=== PATIENT | male | born 1940 | race Caucasian/White ===

== ENCOUNTER 2022-07-28 20:53 | Inpatient (IN) | payer MEDICARE, OTHER ==
[2022-07-28] MEDS ORDERED: IPRATROPIUM-ALBUTEROL 3 ML NEB INHALATION STA (22:39)
[2022-07-28] MEDS ORDERED: SODIUM CHLORIDE 0.9% 1,000 ML IV STA (22:39)
--- NOTE | 2022-07-28 22:40 | ED ---
SOB HPI - General Chief Complaint: Shortness of Breath Stated Complaint: JAVIER Time Seen by Provider: 07/28/22 22:39 Source: patient, RN notes reviewed, old records reviewed Mode of arrival: ambulatory Limitations: no limitations - History of Present Illness Initial Comments: this is an 82-year-old male DF for evaluation severe shortness of breath with co ugh. Recent fever positive for influenza. Patient has no chest pain.he does have history of atrial fibrillation and PE MD Complaint: shortness of breath, cough, chest pain (diagnosis of influenza A) -: days(s) Severity: moderate Severity scale (1-10): 7 Quality: sharp Consistency: constant Improves With: oxygen Worsens With: exertion Known History Of: congestive heart failure Context: recent URI, recent illness (insulin today diagnosis) Associated Symptoms: cough - Related Data Home Medications Medication Instructions Recorded Confirmed Aspirin 325 mg PO DAILY 03/18/16 03/22/16 Allergies Allergy/AdvReac Type Severity Reaction Status Date / Time minocycline Allergy Swelling/fa Verified 03/18/16 13:46 ce/throat Review of Systems ROS Statement: Those systems with pertinent positive or pertinent negative responses have been documented in the HPI. ROS Other: All systems not noted in ROS Statement are negative. Past Medical History Past Medical History: Atrial Fibrillation, Cancer, Pulmonary Embolus (PE), Renal Disease, Sleep Apnea/CPAP/BIPAP Additional Past Medical History / Comment(s): HX OF POLYP, HX OF BLADDER CA. 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%, HX OF TINNITUS History of Any Multi-Drug Resistant Organisms: None Reported Past Surgical History: Cholecystectomy, Orthopedic Surgery Additional Past Surgical History / Comment(s): UROSTOMY, RT KNEE 2 ARTHROSCOPIES, 1 OPEN SX, LT KNEE ARTHROSCOPY X1 Past Anesthesia/Blood Transfusion Reactions: No Reported Reaction Past Psychological History: No Psychological Hx Reported Smoking Status: Never smoker Past Alcohol Use History: Rare Past Drug Use History: None Reported - Past Family History Father Family Medical History: Cancer Additional Family Medical History / Comment(s): PANCREATIC General Exam Limitations: no limitations General appearance: alert, in no apparent distress, anxious Head exam: Present: atraumatic, normocephalic, normal inspection Eye exam: Present: normal appearance, PERRL, EOMI. Absent: scleral icterus, conjunctival injection, periorbital swelling ENT exam: Present: normal exam, mucous membranes moist Neck exam: Present: normal inspection. Absent: tenderness, meningismus, lymphadenopathy Respiratory exam: Present: normal lung sounds bilaterally. Absent: respiratory distress, wheezes, rales, rhonchi, stridor Cardiovascular Exam: Present: regular rate, normal rhythm, normal heart sounds. Absent: systolic murmur, diastolic murmur, rubs, gallop, clicks GI/Abdominal exam: Present: soft, normal bowel sounds. Absent: distended, tenderness, guarding, rebound, rigid Extremities exam: Present: normal inspection, full ROM, normal capillary refill. Absent: tenderness, pedal edema, joint swelling, calf tenderness Back exam: Present: normal inspection Neurological exam: Present: alert, oriented X3, CN II-XII intact Psychiatric exam: Present: normal affect, normal mood Skin exam: Present: warm, dry, intact, normal color. Absent: rash Course Vital Signs 07/28/22 07/28/22 07/28/22 22:24 23:17 23:50 Temperature 97.6 F Pulse Rate 74 80 72 Respiratory 28 H 28 H Rate Blood Pressure 133/80 130/98 O2 Sat by Pulse 94 L 92 L Oximetry - Reevaluation(s) Reevaluation #1: 07/28/22 23:04 records reviewed Reevaluation #2: 07/28/22 23:48 patient has no real change in symptoms here in the ER Reevaluation #3: 07/28/22 23:48 patient informed results and questions answered - Consultations Consultation #1: spoke with we'll admit this patient Medical Decision Making - Medical Decision Making 82 male with positive influenza coming in for shortness of breath. Hypoxia with oxygen in the low 80s at home.does have elevated d-dimer we'll put on heparin and admitted for pulmonary perfusion testing for PE - Lab Data Result diagrams: 07/28/22 23:07 07/28/22 23:07 Lab Results 07/28/22 07/28/22 07/28/22 Range/Units 23:07 23:07 23:07 WBC 12.7 H (3.8-10.6) k/uL RBC 5.84 (4.30-5.90) m/uL Hgb 17.8 H (13.0-17.5) gm/dL Hct 53.9 H (39.0-53.0) % MCV 92.1 (80.0-100.0) fL MCH 30.4 (25.0-35.0) pg MCHC 33.0 (31.0-37.0) g/dL RDW 13.6 (11.5-15.5) % Plt Count 123 L (150-450) k/uL MPV 8.7 Neutrophils % 89 % Lymphocytes % 2 % Monocytes % 7 % Eosinophils % 1 % Basophils % 0 % Neutrophils # 11.3 H (1.3-7.7) k/uL Lymphocytes # 0.3 L (1.0-4.8) k/uL Monocytes # 0.9 (0-1.0) k/uL Eosinophils # 0.1 (0-0.7) k/uL Basophils # 0.0 (0-0.2) k/uL PT 10.6 (9.0-12.0) sec INR 1.0 (<1.2) APTT 24.4 (22.0-30.0) sec D-Dimer 1.47 H (<0.60) mg/L FEU Sodium 139 (137-145) mmol/L Potassium 4.7 (3.5-5.1) mmol/L Chloride 109 H (98-107) mmol/L Carbon Dioxide 19 L (22-30) mmol/L Anion Gap 11 mmol/L BUN 58 H (9-20) mg/dL Creatinine 2.36 H (0.66-1.25) mg/dL Est GFR (CKD-EPI)AfAm 29 (>60 ml/min/1.73 sqM) Est GFR (CKD-EPI)NonAf 25 (>60 ml/min/1.73 sqM) Glucose 159 H (74-99) mg/dL Calcium 9.1 (8.4-10.2) mg/dL Magnesium 2.2 (1.6-2.3) mg/dL Total Bilirubin 1.1 (0.2-1.3) mg/dL AST 50 (17-59) U/L ALT 25 (4-49) U/L Alkaline Phosphatase 80 (38-126) U/L Total Protein 7.2 (6.3-8.2) g/dL Albumin 4.2 (3.5-5.0) g/dL - EKG Data -: EKG Interpreted by Me (EKG is a flutter 84 QRS 135 QTc 413) - Radiology Data Radiology results: report reviewed (chest x-rays negative for acute disease), image reviewed Critical Care Time Critical Care Time: Yes Total Critical Care Time: 31 Disposition Clinical Impression: Influenza A, Hypoxia, Weakness Disposition: ADMITTED IP TO THIS HOSP Condition: Fair Is patient prescribed a controlled substance at d/c from ED?: No Referrals: Scooter Martinez MD [Primary Care Provider] - 1-2 days Time of Disposition: 23:55
--- NOTE | 2022-07-28 22:54 | XR ---
EXAMINATION TYPE: XR chest 2V DATE OF EXAM: 07/28/2022 COMPARISON: 02/11/2016 HISTORY: Short of breath FINDINGS: There is no heart failure nor confluent pneumonic infiltrate. Cos tophrenic angles are clear. No pleural effusion. There are no hilar masses. There is intact bony thor ax. There is some mild reticular interstitial density in both lungs. IMPRESSION: Mild increased interstitial density compared to old exam that could be pulmonic fibrosis. No pulmonary consolidation or heart failure.
[2022-07-28 23:26] LABS: Basophils % (A) 0 %; Eosinophils # (A) 0.1 k/uL (0-0.7); Eosinophils % (A) 1 %; HCT 53.9 % (39.0-53.0); HGB 17.8 gm/dL (13.0-17.5); Lymphocytes # (A) 0.3 k/uL (1.0-4.8); Lymphocytes % (A) 2 %; MCH 30.4 pg (25.0-35.0); MCV 92.1 fL (80.0-100.0); Mean Platelet Volume 8.7; Monocytes # (A) 0.9 k/uL (0-1.0); Monocytes % (A) 7 %; Neutrophils # (A) 11.3 k/uL (1.3-7.7); Neutrophils % (A) 89 %; Platelet Count 123 k/uL (150-450); RBC 5.84 m/uL (4.30-5.90); RDW 13.6 % (11.5-15.5); WBC 12.7 k/uL (3.8-10.6)
[2022-07-28 23:41] LABS: Albumin 4.2 g/dL (3.5-5.0); Calcium 9.1 mg/dL (8.4-10.2); Magnesium 2.2 mg/dL (1.6-2.3); Potassium 4.7 mmol/L (3.5-5.1); Total Bilirubin 1.1 mg/dL (0.2-1.3); Total Protein 7.2 g/dL (6.3-8.2)
[2022-07-28 23:48] LABS: Partial Thromboplastin Time 24.4 sec (22.0-30.0); Prothrombin Time 10.6 sec (9.0-12.0)
[2022-07-29] MEDS ORDERED: HEPARIN SODIUM 1,000 UN/ML (10ML VL) IV ONE
[2022-07-29] MEDS ORDERED: MORPHINE SULFATE 4 MG/ML SYRINGE IV PRN
[2022-07-29] MEDS ORDERED: NALOXONE 0.4 MG/ML 1 ML VIAL IV PRN
[2022-07-29] MEDS ORDERED: ONDANSETRON 4 MG/2 ML VIAL IVP PRN
[2022-07-29] MEDS ORDERED: IPRATROPIUM-ALBUTEROL 3 ML NEB INHALATION PRN (00:02)
[2022-07-29] MEDS: SODIUM CHLORIDE 0.9% 1,000 ML IV SCH ×3 (00:54→23:29)
--- NOTE | 2022-07-29 08:18 | NM ---
EXAMINATION TYPE: NM pul perfusion DATE OF EXAM: 07/29/2022 COMPARISON: Radiograph 07/28/2022 HISTORY: 82-year-old male shortness of breath, assess for PE TECHNIQUE: Following administration of 5.1 mCi Tc 99m MAA. Perfusion images obtained post injection. FINDINGS: Multiple scattered small and moderate sized mismatch (relative to the patient's recent chest x-ray) d efects are present throughout the bilateral mid and lower lungs. IMPRESSION: Intermediate probability for pulmonary embolus. If high clinical suspicion, consider initiating treat ment.
[2022-07-29] MEDS ORDERED: ENOXAPARIN 40 MG/0.4 ML SYRINGE SQ SCH (13:00)
[2022-07-29] MEDS ORDERED: CEFDINIR 300 MG CAP PO SCH (13:00)
[2022-07-29] MEDS: ENOXAPARIN 30 MG/0.3 ML SYRINGE SQ SCH (14:14)
[2022-07-29] MEDS: methylPREDNISolone SOD SUCCI 40 MG/ML 1 ML VIAL IV SCH ×2 (14:14→23:28)
[2022-07-29] MEDS: BUDESONIDE 1 MG/2 ML NEBU INHALATION SCH ×2 (15:52→19:46)
--- NOTE | 2022-07-29 15:59 | US ---
EXAMINATION TYPE: US renals and bladder DATE OF EXAM: 07/29/2022 COMPARISON: Correlation CT chest same date CLINICAL HISTORY: 82-year-old male assess for ckd. Assess for CKD. Hx of bladder cancer with bladder removed in 2009. TECHNIQUE: Multiple sonographic images of the kidneys and bladder are obtained. FINDINGS: EXAM MEASUREMENTS: Right Kidney: 13.0 x 5.9 x 6.5 cm Left Kidney: 12.4 x 6.9 x 6.8 cm. Difficult to clearly see kidney tissue. Right Kidney: Prominent in size. Very lobulated contour. Small amount of perinephric edema is noted. There is an extrarenal pelvis. No calyceal dilatation to suggest hydronephrosis. *Appearance of dilated lower collecting system-minimal hydronephrosis?. Left Kidney: Possible severe hydronephrosis with effaced renal parenchyma. Bladder: Surgically absent Bilateral Jets seen: No IMPRESSION: 1. Very lobulated right kidney. This limits assessment for underlying discrete renal lesions. There i s an extrarenal pelvis. No calyceal dilatation to suggest hydronephrosis. 2. Suspect severe hydronephrosis on the left. Probably long-standing as the renal parenchyma appears thinned and effaced. Appropriate further workup as indicated.
--- NOTE | 2022-07-29 16:00 | CT ---
EXAMINATION TYPE: CT chest wo con DATE OF EXAM: 07/29/2022 COMPARISON: None HISTORY: flu A, SOB CT DLP: 1054.3 mGycm. Automated Exposure Control for Dose Reduction was Utilized. TECHNIQUE: CT scan of the thorax is performed without IV contrast. High-resolution protocol was util ized with noncontiguous scanning of the lung parenchyma. Scanning was performed in supine and prone p ositions. FINDINGS: There are focal ill-defined parenchymal densities in the lower lobes bilaterally, right greater than left. Right densities approximately 2.5 cm and left density is approximately 2 cm. This is a nonspeci fic finding and could represent dense pleural parenchymal scarring or atelectasis. Acute pneumonia is not excluded. There is moderate bronchiectasis in both lower lobes and there are a few small scattered areas of fin e interstitial densities in the upper lobes bilaterally. The great vessels the chest are normal is no mediastinal, hilar or axillary adenopathy. There is no p leural effusion or pneumothorax. Limited scanning through the upper abdomen reveals no gross adenopathy. IMPRESSION: 1. Focal nonspecific pleural parenchymal densities in the lung bases bilaterally as described above. 2. Mild to moderate chronic changes with moderate bilateral lower lobe bronchiectasis and a few scatt ered upper lobe interstitial densities. 3.. No pleural effusion. 4. No mediastinal, hilar or axillary adenopathy
--- NOTE | 2022-07-29 16:14 | P.HPIM ---
History of Present Illness H&P Date: 07/29/22 Chief Complaint: Short of breath This is a pleasant 82-year-old patient who follows with Dr. Scooter Martinez. Chronic stable medical conditions include atrial fibrillation, PE, COPD, obstructive sleep apnea, history of bladder cancer resulting in urostomy in 2001, decreased left kidney function at 50%, chronic tinnitus. Patient presents with progressive increase in shortness of breath for at least 3-4 weeks. Also wheezing. Occasionally coughing. Some dampening of sputum. Decreased appetite. No fever no chills. It's really short-winded on walking about 10-15 steps. No edema. No chest pain. Patient recently few days ago positive for influenza A. Review of systems: GEN.: Tired, decreased appetite EYES: None HEENT: Tinnitus] NECK: None RESPIRATORY: As above CARDIOVASCULAR: None GASTROINTESTINAL: None GENITOURINARY: None MUSCULOSKELETAL: Some joint pains LYMPHATICS: None HEMATOLOGICAL: None PSYCHIATRY: None NEUROLOGICAL: None Past medical history to include: Atrial fibrillation, pulmonary embolism, sleep apnea, bladder cancer with surgery with the urostomy in 2001, if kidney function 10-15%, tinnitus Social history: Lives alone. . Smoked about negative for close to 40 years stopped in 22 years ago. Alcohol rarely. Physical examination: VITAL SIGNS: 97.5, 82, 20, 1 73 x 88, 96% on 3 L GENERAL: BMI 30.3, sitting at edge of the bed, short of breath. EYES: Pupils equal. Conjunctiva normal. HEENT: External appearance of nose and ears normal, oral cavity grossly normal. NECK: JVD not raised; masses not palpable. HEART: First and second heart sounds are normal; no edema. LUNGS:[ Respiratory rate increased; diminished breath sounds, prolonged expiration. ABDOMEN: Soft, nontender, liver spleen not palpable, no masses palpable. PSYCH: [Alert and oriented x3; mood and affect tired l. MUSCULOSKELETAL:No Clubbing/cyanosis;muscles-grossly intact, OA NEUROLOGICAL: Cranial nerves grossly intact; no facial asymmetry, power and sensation grossly intact. LYMPHATICS: No lymph nodes palpable in the axilla and neck, INVESTIGATIONS, reviewed in the clinical context: Reviewed ultrasound: Right kidney very lobulated contour. Left kidney: Possible severe hydronephrosis with effaced renal parenchyma. WBC 12.7 hemoglobin 17.8 platelets 123 sodium 139 potassium 4.7 bicarb 19 BUN 58 creatinine 2.36 Troponin I 0.048 proBNP 700 EKG tracing personally reviewed by me-atrial flutter, rate 84, right bundle- branch block pattern VQ scan: Intermediate probability for PE. Assessment and plan: -Acute COPD exacerbation in a previous smoker Patient is being progressively short of breath for about 3-4 weeks at least. Short of breath. Wheezing. Occasional cough with sputum production. Possible acute bronchitis. Patient recently tested positive for influenza A. It has been a few days. DuoNeb every 4. Nebulize Pulmicort. IV Solu-Medrol. Omnicef -Intermediate probability VQ scan Doppler ultrasound both thighs. Consult pulmonary. -Abnormal renal function. Acute versus chronic. Renal ultrasound. UA. IV hydration. Repeat labs. -Metabolic acidosis from renal function Sodium bicarbonate -Possible atrial flutter fibrillation. Consult cardiology. 2-D echo. DuoNeb. Last Pulmicort. IV Solu-Medrol. Ultrasound lower extremity. 2-D echo. Consult pulmonary cardiology. Renal ultrasound. Past Medical History Past Medical History: Atrial Fibrillation, Cancer, Pulmonary Embolus (PE), Renal Disease, Sleep Apnea/CPAP/BIPAP Additional Past Medical History / Comment(s): HX OF POLYP, HX OF BLADDER CA. 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%, HX OF TINNITUS History of Any Multi-Drug Resistant Organisms: None Reported Past Surgical History: Cholecystectomy, Orthopedic Surgery Additional Past Surgical History / Comment(s): UROSTOMY, RT KNEE 2 ARTHROSCOPIES, 1 OPEN SX, LT KNEE ARTHROSCOPY X1 Past Anesthesia/Blood Transfusion Reactions: No Reported Reaction Past Psychological History: No Psychological Hx Reported Smoking Status: Never smoker Past Alcohol Use History: Rare Past Drug Use History: None Reported - Past Family History Father Family Medical History: Cancer Additional Family Medical History / Comment(s): PANCREATIC Medications and Allergies Home Medications Medication Instructions Recorded Confirmed Type Benzonatate [Tessalon Perle] 200 mg PO TID PRN 07/29/22 07/29/22 History Sennosides [Senokot] 8.6 mg PO DAILY PRN 07/29/22 07/29/22 History methylPREDNISolone [Medrol Dose See Taper PO DIRECTED 07/29/22 07/29/22 History Pack] Allergies Allergy/AdvReac Type Severity Reaction Status Date / Time minocycline Allergy Swelling/fa Verified 07/29/22 08:45 ce/throat Physical Exam Vitals: Vital Signs Temp Pulse Pulse Resp BP BP Pulse Ox 07/29/22 10:51 76 18 138/81 94 L 07/29/22 08:00 78 07/29/22 07:49 73 96 07/29/22 07:35 97.5 F L 82 20 173/88 96 07/29/22 06:44 60 20 167/79 94 L 07/29/22 06:02 56 L 20 141/66 94 L 07/29/22 04:00 78 20 94 L 07/29/22 03:36 72 20 160/87 94 L 07/29/22 02:05 76 20 116/93 95 07/29/22 00:56 92 22 176/91 95 07/29/22 00:33 74 24 176/91 95 07/29/22 00:05 28 H 07/29/22 00:02 79 07/28/22 23:50 72 07/28/22 23:17 80 28 H 130/98 92 L 07/28/22 22:24 97.6 F 74 28 H 133/80 94 L Intake and Output 07/28/22 07/29/22 07/29/22 22:59 06:59 14:59 Other: Weight 95.708 kg Results CBC & Chem 7: 07/28/22 23:07 07/28/22 23:07 Labs: Abnormal Lab Results - Last 24 Hours (Table) 07/28/22 07/28/22 07/28/22 Range/Units 23:07 23:07 23:07 WBC 12.7 H (3.8-10.6) k/uL Hgb 17.8 H (13.0-17.5) gm/dL Hct 53.9 H (39.0-53.0) % Plt Count 123 L (150-450) k/uL Neutrophils # 11.3 H (1.3-7.7) k/uL Lymphocytes # 0.3 L (1.0-4.8) k/uL D-Dimer 1.47 H (<0.60) mg/L FEU Chloride 109 H (98-107) mmol/L Carbon Dioxide 19 L (22-30) mmol/L BUN 58 H (9-20) mg/dL Creatinine 2.36 H (0.66-1.25) mg/dL Glucose 159 H (74-99) mg/dL Troponin I (0.000-0.034) ng/mL 07/28/22 Range/Units 23:07 WBC (3.8-10.6) k/uL Hgb (13.0-17.5) gm/dL Hct (39.0-53.0) % Plt Count (150-450) k/uL Neutrophils # (1.3-7.7) k/uL Lymphocytes # (1.0-4.8) k/uL D-Dimer (<0.60) mg/L FEU Chloride (98-107) mmol/L Carbon Dioxide (22-30) mmol/L BUN (9-20) mg/dL Creatinine (0.66-1.25) mg/dL Glucose (74-99) mg/dL Troponin I 0.048 H* (0.000-0.034) ng/mL
--- NOTE | 2022-07-29 16:52 | US ---
EXAMINATION TYPE: US venous doppler duplex LE DATE OF EXAM: 07/29/2022 4:47 PM COMPARISON: NONE CLINICAL HISTORY: Rule out DVT. Leg swelling, pt states h/o DVT approx 10 yrs ago SIDE PERFORMED: Bilateral TECHNIQUE: The lower extremity deep venous system is examined utilizing real time linear array sonog deanna with graded compression, doppler sonography and color-flow sonography. VESSELS IMAGED: Common Femoral Vein Deep Femoral Vein Greater Saphenous Vein * Femoral Vein Popliteal Vein Small Saphenous Vein * Proximal Calf Veins (* superficial vessels) Right Leg: Negative for DVT Left Leg: Negative for DVT IMPRESSION: No evidence of deep vein thrombosis in both legs.
[2022-07-29] MEDS: SODIUM BICARBONATE TAB 650 MG TAB PO SCH ×2 (17:09→20:47)
[2022-07-29] MEDS: IPRATROPIUM-ALBUTEROL 3 ML NEB INHALATION SCH ×3 (17:11→23:38)
[2022-07-29] MEDS ORDERED: DEXTROSE 50% SYRINGE 50 ML IVP PRN ×2 (17:24)
[2022-07-29] MEDS: INSULIN ASPART (NovoLOG) 100 UNIT/ML VIAL SQ SCH ×2 (18:00→20:47)
[2022-07-29 18:57] LABS: Appearance,Urine Cloudy (Clear); Bacteria,Urine Few /hpf; Bilirubin,Urine Negative (Negative); Blood,Urine Moderate (Negative); Budding Yeast,Urine Occasional /hpf; Color,Urine Light Yellow; Glucose,Urine (UA) Negative (Negative); Ketones,Urine Negative (Negative); Leukocyte Esterase,Urine Large (Negative); Mucus,Urine Rare /hpf; Nitrite,Urine Positive (Negative); Protein,Urine 2+ (Negative); RBC,Urine 3 /hpf (0-5); Specific Gravity,Urine 1.013 (1.001-1.035); Squamous Epithelial Cell,Urine <1 /hpf (0-4); Urobilinogen,Urine <2.0 mg/dL (<2.0); WBC,Urine 71 /hpf (0-5)
[2022-07-29 20:02] LABS: Glucose,Whole Blood 181 mg/dL (70-110)
[2022-07-30] MEDS: IPRATROPIUM-ALBUTEROL 3 ML NEB INHALATION SCH ×5 (03:20→20:36)
[2022-07-30 06:11] LABS: Glucose,Whole Blood 148 mg/dL (70-110)
[2022-07-30] MEDS: INSULIN ASPART (NovoLOG) 100 UNIT/ML VIAL SQ SCH ×4 (06:44→20:45)
--- NOTE | 2022-07-30 07:34 | XR ---
EXAMINATION TYPE: XR chest 1V DATE OF EXAM: 07/30/2022 7:02 AM COMPARISON: Chest radiographs from 07/28/2022 TECHNIQUE: XR chest 1V Frontal view of the chest. CLINICAL INDICATION:Male, 82 years old with history of cough; FINDINGS: Lungs/Pleura: Similar multifocal airspace opacities. No evidence of pneumothorax or pleural effusion. Pulmonary vascularity: Unremarkable. Heart/mediastinum: Cardiomediastinal silhouette is prominent in size. Musculoskeletal: No acute osseous pathology. IMPRESSION: Multifocal airspace opacities concerning for pneumonia.
[2022-07-30] MEDS: BUDESONIDE 1 MG/2 ML NEBU INHALATION SCH ×2 (08:19→20:36)
[2022-07-30] MEDS: CEFDINIR 300 MG CAP PO SCH (08:43)
[2022-07-30] MEDS: ENOXAPARIN 30 MG/0.3 ML SYRINGE SQ SCH (08:43)
[2022-07-30] MEDS: methylPREDNISolone SOD SUCCI 40 MG/ML 1 ML VIAL IV SCH ×3 (08:43→23:41)
[2022-07-30] MEDS: SODIUM BICARBONATE TAB 650 MG TAB PO SCH ×3 (08:43→20:41)
--- NOTE | 2022-07-30 09:11 | P.NPCON ---
History of Present Illness - Reason for Consult acute renal failure - History of Present Illness Patient is an 82-year-old male with history of bladder cancer status post cystectomy and prostatectomy with urostomy in 2001. 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 Baseline renal function not known Patient is admitted to the hospital with increased weakness and shortness of breath. He did have cough. No significant diarrhea or vomiting. Tested positive for influenza A a few days ago as outpatient. Serum creatinine 2.36 mg/dL on 07/28/2022. No other labs available for comparison. Patient has had good output from the urostomy. Patient states that he was told he has minimal function in the left kidney. Blood pressure has not been low No history of use of NSAIDs. Currently maintained on nasal cannula 3 L with O2 sats at 95%. Review of Systems As per HPI other systems negative Past Medical History Past Medical History: Atrial Fibrillation, Cancer, Pulmonary Embolus (PE), Renal Disease, Sleep Apnea/CPAP/BIPAP Additional Past Medical History / Comment(s): HX OF POLYP, HX OF BLADDER CA. 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%, HX OF TINNITUS History of Any Multi-Drug Resistant Organisms: None Reported Past Surgical History: Cholecystectomy, Orthopedic Surgery Additional Past Surgical History / Comment(s): UROSTOMY, RT KNEE 2 ARTHROSCOPIES, 1 OPEN SX, LT KNEE ARTHROSCOPY X1 Past Anesthesia/Blood Transfusion Reactions: No Reported Reaction Smoking Status: Former smoker - Past Family History Father Family Medical History: Cancer Additional Family Medical History / Comment(s): PANCREATIC Medications and Allergies Home Medications Medication Instructions Recorded Confirmed Type Benzonatate [Tessalon Perle] 200 mg PO TID PRN 07/29/22 07/29/22 History Sennosides [Senokot] 8.6 mg PO DAILY PRN 07/29/22 07/29/22 History methylPREDNISolone [Medrol Dose See Taper PO DIRECTED 07/29/22 07/29/22 History Pack] Allergies Allergy/AdvReac Type Severity Reaction Status Date / Time minocycline Allergy Swelling/fa Verified 07/29/22 08:45 ce/throat Physical Exam Vitals: Vital Signs Temp Pulse Pulse Resp BP Pulse Ox 07/30/22 08:30 70 07/30/22 08:21 95 07/30/22 08:19 68 07/30/22 08:00 77 16 135/61 95 07/30/22 04:00 98.1 F 73 18 112/53 97 07/30/22 03:32 72 07/30/22 03:20 76 07/29/22 23:49 64 07/29/22 23:39 60 07/29/22 20:04 80 07/29/22 20:00 97.9 F 118 H 20 142/83 94 L 07/29/22 19:50 77 07/29/22 17:20 75 07/29/22 17:11 70 07/29/22 16:33 97.2 F L 76 18 181/88 94 L 07/29/22 10:51 76 18 138/81 94 L Intake and Output 07/29/22 07/30/22 07/30/22 22:59 06:59 14:59 Intake Total 658 Output Total 500 600 175 Balance -500 -600 483 Intake: Oral 658 Output: Urine 500 600 175 Awake, comfortable, no acute distress Examination of the heart S1 and S2 Examination of the lungs bilateral breath sounds are heard Abdomen is soft nontender, urostomy noted with clear urine output Examination of the lower extremity shows no evidence of 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 Acute kidney injury, prerenal and associated with underlying infection. Currently nonoliguric. UA shows 2+ protein and moderate blood and significant WBCs. This is a urostomy specimen. No nephrotoxic agents on board. Maintained on IV fluids 2. Chronic kidney disease, baseline renal function not known. Patient states that she was told that one of his kidneys had only about 10-15% function. Check ultrasound to assess size of the kidneys 3. Recent influenza A 4. Pneumonia possibly viral 5. Acute COPD exacerbation Plan: Check labs today Resume IV fluids his renal function is not better Check ultrasound of the kidneys Continue to avoid nephrotoxic agents Repeat labs in a.m. Thank you for the consultation. We will continue to follow the patient with you during his hospitalization
[2022-07-30 11:55] LABS: Glucose,Whole Blood 120 mg/dL (70-110)
--- NOTE | 2022-07-30 11:56 | US ---
EXAMINATION TYPE: US kidneys/renal and bladder DATE OF EXAM: 07/30/2022 COMPARISON: 07/29/2022 CLINICAL HISTORY: JUANITO. Bladder and prostate cancer 2009 EXAM MEASUREMENTS: Right Kidney: 12.1 x 5.7 x 5.2 cm Left Kidney: 17.5 x 8.2 x 7.0 cm Right Kidney: Lobulated without hydronephrosis visualized Slight possible edema noted peripherally, similar to prior exam. Left Kidney: Moderate dilation of the collecting system on the left with thinning parenchyma. Bladder: Removed IMPRESSION: 1. Moderate dilation of the left renal collecting system which should be further evaluated with cros s-sectional imaging. 2. No evidence of right hydronephrosis.
--- NOTE | 2022-07-30 12:46 | P.CNPUL ---
History of Present Illness Consult date: 07/30/22 Reason for consult: dyspnea Chief complaint: 2 weeks history of worsening shortness of breath on exertion History of present illness: This is an 82-year-old white male with history of multiple comorbidities including chronic atrial fibrillation, COPD, history of bladder cancer and previous ureterostomy in 2001 done at the [facility]. History of chronic renal failure/insufficiency and remote history of pulmonary embolism. For some reason the patient is not on any anticoagulation therapy in spite of his atrial fibrillation, patient recalls being on anticoagulation therapy years ago but none recently. Patient had a previous [id number] smoking history, presently does not smoke. Over the last 2 weeks, the patient has been developing worsening shortness of breath on exertion, occasional cough, minimal wheezing if any. Patient could not figure out why his shortness of breath has become pronounced over the last 2 weeks, he was recently diagnosed by a primary care physician as having influenza A infection. His symptoms at the time of mostly upper respiratory type of symptoms which have resolved mostly. Except for minimal occasional cough. Patient was evaluated in the ER, chest x-ray showed minimal interstitial densities, questionable underlying minimal fibrotic changes. No pneumonia and no congestive heart failure. CT of the chest showed focal nonspecific parenchymal densities, and possibly some component of by basilar bronchiectasis. Again the findings are nonspecific. His WBC count is 12.7 hemoglobin is 17.8. D-dimer was elevated at 1.47. However because of his renal profile with a BUN of 58 creatinine 2.36, patient could not have CT angiogram of the chest, he had a perfusion scan, which showed multiple mismatching defects, and by the radiologist as intermediate probability, I feel it is likely a high probability VQ scan, and based on the clinical history and considering the patient has atrial fibrillation, I am definitely recommending that the patient goes on heparin as per protocol. Troponin was also noted to be elevated at 0.048, his BNP level was normal. Urinalysis showed positive leukocyte esterase, and a bit of bacteriuria, and pyuria. Considering his shortness of breath, and considering his findings on the perfusion scan, I was asked to see him on consultation. I did recommend that we continue his bronchodilators, methylprednisolone, DuoNeb updrafts, Pulmicort, and definitely recommending heparin. Although his venous Doppler was negative Review of Systems GEN.: Weakness and poor appetite. No weight loss. HEENT: Chronic Tinnitus] RESPIRATORY: As noted in HPI. Cardiac: No chest pain and orthopnea no PND does have chronic atrial fibrillation. GASTROINTESTINAL: Negative GENITOURINARY: Patient has history of bladder cancer, his bladder has been removed, he has a ureterostomy bag placed MUSCULOSKELETAL: Vague aches and pains. HEMATOLOGICAL: History of pulmonary embolism. Patient used to be on heparin before and anticoagulation therapy in the past. PSYCHIATRY: Negative NEUROLOGICAL: Negative Past Medical History Past Medical History: Atrial Fibrillation, Cancer, Pulmonary Embolus (PE), Renal Disease, Sleep Apnea/CPAP/BIPAP Additional Past Medical History / Comment(s): HX OF POLYP, HX OF BLADDER CA. 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%, HX OF TINNITUS History of Any Multi-Drug Resistant Organisms: None Reported Past Surgical History: Cholecystectomy, Orthopedic Surgery Additional Past Surgical History / Comment(s): UROSTOMY, RT KNEE 2 ARTHROS COPIES, 1 OPEN SX, LT KNEE ARTHROSCOPY X1 Past Anesthesia/Blood Transfusion Reactions: No Reported Reaction Smoking Status: Former smoker - Past Family History Father Family Medical History: Cancer Additional Family Medical History / Comment(s): PANCREATIC Medications and Allergies Home Medications Medication Instructions Recorded Confirmed Type Benzonatate [Tessalon Perle] 200 mg PO TID PRN 07/29/22 07/29/22 History Sennosides [Senokot] 8.6 mg PO DAILY PRN 07/29/22 07/29/22 History methylPREDNISolone [Medrol Dose See Taper PO DIRECTED 07/29/22 07/29/22 History Pack] Allergies Allergy/AdvReac Type Severity Reaction Status Date / Time minocycline Allergy Swelling/fa Verified 07/29/22 08:45 ce/throat Physical Exam Vitals: Vital Signs Temp Pulse Pulse Resp BP Pulse Ox 07/30/22 11:46 98.5 F 73 16 93 L 07/30/22 11:38 67 07/30/22 11:29 71 07/30/22 08:30 70 07/30/22 08:21 95 07/30/22 08:19 68 07/30/22 08:00 77 16 135/61 95 07/30/22 04:00 98.1 F 73 18 112/53 97 07/30/22 03:32 72 07/30/22 03:20 76 07/29/22 23:49 64 07/29/22 23:39 60 07/29/22 20:04 80 07/29/22 20:00 97.9 F 118 H 20 142/83 94 L 07/29/22 19:50 77 07/29/22 17:20 75 07/29/22 17:11 70 07/29/22 16:33 97.2 F L 76 18 181/88 94 L Intake and Output 07/29/22 07/30/22 07/30/22 22:59 06:59 14:59 Intake Total 658 Output Total 500 600 175 Balance -500 -600 483 Intake: Oral 658 Output: Urine 500 600 175 Physical Exam: Revealed a 82-year-old white male in no distress, pleasant. On 3 L nasal cannula, O2 sats are 96% Head: Atraumatic, normocephalic. HEENT:[Neck is supple.] [No neck masses.] [No thyromegaly.] [No JVD.] Chest: Diminished breath sound bilaterally no crackles or rhonchi or wheezes. Symmetrical chest expansion. Cardiac Exam: Irregular irregular rhythm. [Normal S1 and S2, no S3 gallop, no murmur.] Abdomen: [Soft, nontender, no megaly, no rebound, no guarding, normal bowel sounds.] Urostomy bag is noted Extremities: [No clubbing, no edema, no cyanosis.] Good pulses bilaterally. Psychiatric: Normal mood, affect and normal mental status examination. Skin: No rashes. Neurological Exam: [No focal neurologic deficit.] Results - Laboratory Findings CBC and BMP: 07/28/22 23:07 07/28/22 23:07 PT/INR, D-dimer PT 10.6 sec (9.0-12.0) 07/28/22 23:07 INR 1.0 (<1.2) 07/28/22 23:07 D-Dimer 1.47 mg/L FEU (<0.60) H 07/28/22 23:07 Abnormal lab findings: Abnormal Labs 07/28/22 07/28/22 07/28/22 23:07 23:07 23:07 WBC 12.7 H Hgb 17.8 H Hct 53.9 H Plt Count 123 L Neutrophils # 11.3 H Lymphocytes # 0.3 L D-Dimer 1.47 H Chloride 109 H Carbon Dioxide 19 L BUN 58 H Creatinine 2.36 H Glucose 159 H POC Glucose (mg/dL) Troponin I Urine Protein Urine Blood Ur Leukocyte Esterase Urine WBC Urine Bacteria Urine Mucus Urine Yeast (Budding) 07/28/22 07/29/22 07/29/22 23:07 18:52 20:01 WBC Hgb Hct Plt Count Neutrophils # Lymphocytes # D-Dimer Chloride Carbon Dioxide BUN Creatinine Glucose POC Glucose (mg/dL) 181 H Troponin I 0.048 H* Urine Protein 2+ H Urine Blood Moderate H Ur Leukocyte Esterase Large H Urine WBC 71 H Urine Bacteria Few H Urine Mucus Rare H Urine Yeast (Budding) Occasional H 07/30/22 07/30/22 06:09 11:54 WBC Hgb Hct Plt Count Neutrophils # Lymphocytes # D-Dimer Chloride Carbon Dioxide BUN Creatinine Glucose POC Glucose (mg/dL) 148 H 120 H Troponin I Urine Protein Urine Blood Ur Leukocyte Esterase Urine WBC Urine Bacteria Urine Mucus Urine Yeast (Budding) - Diagnostic Findings Chest x-ray: image reviewed (As noted in HPI) CT scan - chest: image reviewed (As noted in HPI) Additional studies: VQ scan showed multiple mismatching defects., I suspect the findings are consistent with high probability pulmonary embolism, especially with the clinical history. Assessment and Plan Assessment: Impression: Acute dyspnea/2 weeks history of shortness of breath, most likely secondary to acute pulmonary embolism and suspect some underlying COPD as well as chronic atrial fibrillation/flutter. Recent influenza A infection. Chronic renal failure Chronic metabolic acidosis most likely secondary to renal impairment/chronic renal failure History of bladder cancer and previous cystectomy Remote history of pulmonary embolism History of obstructive sleep apnea syndrome. Recommendation: Start patient on heparin and follow the protocol, transition to eliquis in the next 24 hours. Continue bronchodilators as ordered by the admitting physician Transition to oral prednisone in the next 24 hours Echocardiogram is pending Agree with sodium bicarb Continue to monitor renal status We will continue to follow Time with Patient: Greater than 30
[2022-07-30 13:16] LABS: Calcium 8.4 mg/dL (8.4-10.2); Potassium 4.4 mmol/L (3.5-5.1)
[2022-07-30] MEDS: HEPARIN SOD,PORK IN 0.45% NACL 25,000 UNIT in 0.45% NACL 1 250ML.BAG IV SCH (13:24)
--- NOTE | 2022-07-30 13:33 | P.CRDCN ---
History of Present Illness Consult date: 07/30/22 History of present illness: Patient has a known history of atrial fibrillation, pulmonary embolism, COPD, shocked of sleep apnea, history of bladder cancer resulting in a urostomy in 2001 decreased left kidney function at 50%, and chronic tinnitus. We have been consulted to patient for atrial flutter She presented to the ER with complaints of shortness of breath increased cough and fever. Patient is positive for influenza. His EKG showed atrial flutter with controlled ventricular. Patient's troponin was also slightly elevated at 0.048 this is believed to be secondary to the chronic renal failure. His BNP was 700. His chest x-ray showed mildly increased interstitial density but no evidence of heart failure. Patient is on a heparin drip for anticoagulation, will check coverage for Eliquis. Lacho transition him to Eliquis tomorrow. l Review of Systems REVIEW OF SYSTEMS At the time of my exam: CONSTITUTIONAL: Denies fever or chills. EYES: Negative for vision changes ENT: Negative for hearing loss CARDIOVASCULAR: Denies chest pain, shortness of breath, diaphoresis, orthopnea, PND or palpitations. VASCULAR: Denies edema RESPIRATORY: Denies cough. GASTROINTESTINAL: Denies abdominal pain, diarrhea, constipation, nausea or vomiting. MUSCULOSKELETAL: Denies myalgias. NEUROLOGIC: Denies numbness, tingling, headache or weakness. ENDOCRINE: Denies fatigue, weight change, polydipsia or polyurina. GENITOURINARY: Denies burning, hematuria or urgency with micturation. HEMATOLOGIC: Denies history of anemia or bleeding. DERMATOLOGY: Denies rash or skin sores PSYCH: Negative for depression or hallucinations. Past Medical History Past Medical History: Atrial Fibrillation, Cancer, Pulmonary Embolus (PE), Renal Disease, Sleep Apnea/CPAP/BIPAP Additional Past Medical History / Comment(s): HX OF POLYP, HX OF BLADDER CA. 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%, HX OF TINNITUS History of Any Multi-Drug Resistant Organisms: None Reported Past Surgical History: Cholecystectomy, Orthopedic Surgery Additional Past Surgical History / Comment(s): UROSTOMY, RT KNEE 2 ARTHROS COPIES, 1 OPEN SX, LT KNEE ARTHROSCOPY X1 Past Anesthesia/Blood Transfusion Reactions: No Reported Reaction Smoking Status: Former smoker - Past Family History Father Family Medical History: Cancer Additional Family Medical History / Comment(s): PANCREATIC Medications and Allergies Home Medications Medication Instructions Recorded Confirmed Type Benzonatate [Tessalon Perle] 200 mg PO TID PRN 07/29/22 07/29/22 History Sennosides [Senokot] 8.6 mg PO DAILY PRN 07/29/22 07/29/22 History methylPREDNISolone [Medrol Dose See Taper PO DIRECTED 07/29/22 07/29/22 History Pack] Apixaban [Eliquis] 5 mg PO BID #60 tab 07/30/22 Rx Allergies Allergy/AdvReac Type Severity Reaction Status Date / Time minocycline Allergy Swelling/fa Verified 07/29/22 08:45 ce/throat Physical Exam Vitals: Vital Signs Temp Pulse Pulse Resp BP Pulse Ox 07/30/22 11:46 98.5 F 73 16 93 L 07/30/22 11:38 67 07/30/22 11:29 71 07/30/22 08:30 70 07/30/22 08:21 95 07/30/22 08:19 68 07/30/22 08:00 77 16 135/61 95 07/30/22 04:00 98.1 F 73 18 112/53 97 07/30/22 03:32 72 07/30/22 03:20 76 07/29/22 23:49 64 07/29/22 23:39 60 07/29/22 20:04 80 07/29/22 20:00 97.9 F 118 H 20 142/83 94 L 07/29/22 19:50 77 07/29/22 17:20 75 07/29/22 17:11 70 07/29/22 16:33 97.2 F L 76 18 181/88 94 L Intake and Output 07/29/22 07/30/22 07/30/22 22:59 06:59 14:59 Intake Total 658 Output Total 500 600 375 Balance -500 -600 283 Intake: Oral 658 Output: Urine 500 600 375 General: The patient is awake and alert, in no distress, and does not appear acutely ill. Skin: Skin is warm and dry and no rashes or lesions are noted. Eye: Pupils are equal, round and reactive to light, extra-ocular movements are intact; there is normal conjunctiva bilaterally. Ears, nose, mouth and throat: There are moist mucous membranes and no oral les ions. Neck: The neck is supple, there is no tenderness or JVD. Cardiovascular: There is irregular regular rate and rhythm. No murmur, rub or gallop is appreciated. Respiratory: Lungs are clear to auscultation, respirations are non-labored, breath sounds are equal. Gastrointestinal: Soft, non-distended, non-tender abdomen without masses or organomegaly noted. There is no rebound or guarding present. Bowel sounds are unremarkable. Back: There is no tenderness to palpation in the midline. There is no obvious deformity. Musculoskeletal: Normal ROM, no tenderness, There is no pedal edema. There is no calf tenderness or swelling. Extremities: Mild bilateral pitting edema Vascular: Femoral pulse is normal. Posterior tibial pulses are normal .Dorsalis pedis is palpable. Neurological: CN II-XII intact. There are no obvious motor or sensory deficits. Speech is normal. Psychiatric: Cooperative, appropriate mood & affect, normal judgment Results 07/28/22 23:07 07/30/22 12:17 Comprehensive Metabolic Panel 07/30/22 Range/Units 12:17 Sodium 142 (137-145) mmol/L Potassium 4.4 (3.5-5.1) mmol/L Chloride 109 H (98-107) mmol/L Carbon Dioxide 23 (22-30) mmol/L BUN 52 H (9-20) mg/dL Creatinine 2.07 H (0.66-1.25) mg/dL Glucose 106 H (74-99) mg/dL Calcium 8.4 (8.4-10.2) mg/dL Current Medications Generic Name Dose Route Start Last Admin Trade Name Freq PRN Reason Stop Dose Admin Albuterol/Ipratropium 3 ml 07/29/22 00:02 07/29/22 07:48 Ipratropium-Albuterol 3 Ml Neb INHALATION 3 ml RT-QID PRN Administration Shortness Of Breath Or Wheezing Albuterol/Ipratropium 3 ml 07/30/22 12:00 07/30/22 11:29 Ipratropium-Albuterol 3 Ml Neb INHALATION 3 ml RT-QID ELIECER Administration Budesonide 1 mg 07/29/22 13:00 07/30/22 08:19 Budesonide 1 Mg/2 Ml Nebu INHALATION 1 mg RT-BID ELIECER Administration Cefdinir 300 mg 07/30/22 09:00 07/30/22 08:43 Cefdinir 300 Mg Cap PO 300 mg DAILY ELIECER Administration Protocol Dextrose/Water 25 ml 07/29/22 17:24 Dextrose 50% Syringe 50 Ml IVP PER PROTOCOL PRN Hypoglycemia Protocol Dextrose/Water 50 ml 07/29/22 17:24 Dextrose 50% Syringe 50 Ml IVP PER PROTOCOL PRN Hypoglycemia Protocol Sodium Chloride 1,000 mls @ 100 mls/hr 07/29/22 00:00 07/29/22 23:29 Saline 0.9% IV Not Given .Q10H ELIECER Heparin Sodium/Sodium Chloride 250 mls @ 10 mls/hr 07/30/22 10:15 07/30/22 13:24 25,000 unit/ Sodium Chloride IV 10.448 units/kg/hr .Q24H ELIECER 10 mls/hr Administration Protocol 10.448 UNITS/KG/HR Insulin Aspart 0 unit 07/29/22 17:30 07/30/22 12:46 Insulin Aspart (Novolog) 100 Unit/Ml Vial SQ Not Given ACHS [facility] Protocol Methylprednisolone Sodium Succinate 40 mg 07/29/22 13:00 07/30/22 08:43 Methylprednisolone Sod Succi 40 Mg/Ml 1 Ml Vial IV 40 mg Q8HR ELIECER Administration Morphine Sulfate 4 mg 07/29/22 00:00 Morphine Sulfate 4 Mg/Ml Syringe IV Q4HR PRN Severe Pain (Scale 7 to 10) Naloxone HCl 0.2 mg 07/29/22 00:00 Naloxone 0.4 Mg/Ml 1 Ml Vial IV Q2M PRN Opioid Reversal Ondansetron HCl 4 mg 07/29/22 00:00 Ondansetron 4 Mg/2 Ml Vial IVP Q8HR PRN Nausea And Vomiting Sodium Bicarbonate 650 mg 07/29/22 16:15 07/30/22 08:43 Sodium Bicarbonate Tab 650 Mg Tab PO 650 mg TID ELIECER Administration Intake and Output 07/29/22 07/30/22 07/30/22 22:59 06:59 14:59 Intake Total 658 Output Total 500 600 375 Balance -500 -600 283 Intake: Oral 658 Output: Urine 500 600 375 07/28/22 23:07 07/30/22 12:17 Assessment and Plan Assessment: New onset atrial flutter Elevated troponins believed to be secondary to renal failure. Plan: Continue with heparin drip Check coverage for Eliquis Transitioned to oral anticoagulation tomorrow Further recommendations based on clinical course The above impression and plan of care have been discussed and directed by the signing physician. Becky Brooks, nurse practitioner, acting as scribe for signing physician.
--- NOTE | 2022-07-30 14:44 | P.PN ---
Progress Note - Text Progress Note Date: 07/30/22 Chief Complaint: Short of breath This is a pleasant 82-year-old patient who follows with Dr. Scooter Martinez. Chronic stable medical conditions include atrial fibrillation, PE, COPD, obstructive sleep apnea, history of bladder cancer resulting in urostomy in 2001, decreased left kidney function at 50%, chronic tinnitus. Patient presents with progressive increase in shortness of breath for at least 3-4 weeks. Also wheezing. Occasionally coughing. Some dampening of sputum. Decreased appetite. No fever no chills. It's really short-winded on walking about 10-15 steps. No edema. No chest pain. Patient recently few days ago positive for influenza A. Admitted with COPD exacerbation, question about possible PE. Patient is chronically on eliquis. 07/30/2022: Some shortness of breath and wheezing. She better than yesterday. Placed on IV heparin. Continue bronchodilators, IV Solu-Medrol. Eating better. Active Medications Albuterol/Ipratropium (Ipratropium-Albuterol 3 Ml Neb) 3 ml INHALATION RT-QID PRN PRN Reason: Shortness Of Breath Or Wheezing Last Admin: 07/29/22 07:48 Dose: 3 ml Albuterol/Ipratropium (Ipratropium-Albuterol 3 Ml Neb) 3 ml INHALATION RT-QID ELIECER Last Admin: 07/30/22 11:29 Dose: 3 ml Budesonide (Budesonide 1 Mg/2 Ml Nebu) 1 mg INHALATION RT-BID ELIECER Last Admin: 07/30/22 08:19 Dose: 1 mg Cefdinir (Cefdinir 300 Mg Cap) 300 mg PO DAILY ELIECER; Protocol Last Admin: 07/30/22 08:43 Dose: 300 mg Dextrose/Water (Dextrose 50% Syringe 50 Ml) 25 ml IVP PER PROTOCOL PRN; Protocol PRN Reason: Hypoglycemia Dextrose/Water (Dextrose 50% Syringe 50 Ml) 50 ml IVP PER PROTOCOL PRN; Protocol PRN Reason: Hypoglycemia Sodium Chloride (Saline 0.9%) 1,000 mls @ 100 mls/hr IV .Q10H ELIECER Last Admin: 07/29/22 23:29 Dose: Not Given Heparin Sodium/Sodium Chloride (25,000 unit/ Sodium Chloride) 250 mls @ 10 mls/hr IV .Q24H ELIECER; Protocol Last Admin: 07/30/22 13:24 Dose: 10.448 units/kg/hr, 10 mls/hr Insulin Aspart (Insulin Aspart (Novolog) 100 Unit/Ml Vial) [address] [facility]; Protocol Last Admin: 07/30/22 12:46 Dose: Not Given Methylprednisolone Sodium Succinate (Methylprednisolone Sod Succi 40 Mg/Ml 1 Ml Vial) 40 mg IV Q8HR [facility] Last Admin: 07/30/22 08:43 Dose: 40 mg Morphine Sulfate (Morphine Sulfate 4 Mg/Ml Syringe) 4 mg IV Q4HR PRN PRN Reason: Severe Pain (Scale 7 to 10) Naloxone HCl (Naloxone 0.4 Mg/Ml 1 Ml Vial) 0.2 mg IV Q2M PRN PRN Reason: Opioid Reversal Ondansetron HCl (Ondansetron 4 Mg/2 Ml Vial) 4 mg IVP Q8HR PRN PRN Reason: Nausea And Vomiting Sodium Bicarbonate (Sodium Bicarbonate Tab 650 Mg Tab) 650 mg PO TID [facility] Last Admin: 07/30/22 08:43 Dose: 650 mg Past medical history to include: Atrial fibrillation, pulmonary embolism, sleep apnea, bladder cancer with surgery with the urostomy in 2001, if kidney function 10-15%, tinnitus Social history: Lives alone. . Smoked about negative for close to 40 years stopped in 22 years ago. Alcohol rarely. Physical examination: VITAL SIGNS: 98.5, 73, 16, 135/61, 83% 3 L GENERAL: Reclining in bed short of breath. EYES: Pupils equal. Conjunctiva normal. HEENT: External appearance of nose and ears normal, oral cavity grossly normal. NECK: JVD not raised; masses not palpable. HEART: Irregular heart sounds; no edema. LUNGS:[ Respiratory rate increased; diminished breath sounds, prolonged expiration. ABDOMEN: Soft, nontender, liver spleen not palpable, no masses palpable. PSYCH: [Alert and oriented x3; mood and affect tired MUSCULOSKELETAL:No Clubbing/cyanosis;muscles-grossly intact, OA NEUROLOGICAL: Cranial nerves grossly intact; no facial asymmetry, power and sensation grossly intact. LYMPHATICS: No lymph nodes palpable in the axilla and neck, INVESTIGATIONS, reviewed in the clinical context: Lower extremity Doppler: Negative for DVT bilaterally CT chest without contrast: Mild to moderate chronic changes with moderate bilateral lower lobe bronchiectasis and a few scattered upper lobe interstitial densities UA: Protein 2+ leukoesterase WBC few bacteria 07/30/2022: Potassium 4.4 BUN 52 creatinine 2.07 Renal ultrasound: Right kidney very lobulated contour. Left kidney: Possible severe hydronephrosis with effaced renal parenchyma. WBC 12.7 hemoglobin 17.8 platelets 123 sodium 139 potassium 4.7 bicarb 19 BUN 58 creatinine 2.36 Troponin I 0.048 proBNP 700 EKG tracing personally reviewed by me-atrial flutter, rate 84, right bundle- branch block pattern VQ scan: Intermediate probability for PE. Assessment and plan: -Acute COPD exacerbation in a previous smoker: Slow to respond Patient is being progressively short of breath for about 3-4 weeks at least. Short of breath. Wheezing. Occasional cough with sputum production. Possible acute bronchitis. Patient recently tested positive for influenza A. It has been a few days. DuoNeb every 4. Nebulize Pulmicort. IV Solu-Medrol. Omnicef -Probable PE. IV heparin. Follow with pulmonary. -Chronic kidney disease. Stage III, suspect nephrosclerosis Gentle hydration -Possible chronic left-sided hydronephrosis [employer] urology -Metabolic acidosis from renal function Sodium bicarbonate -Possible atrial flutter fibrillation. Consult cardiology. 2-D echo. -IV heparin monitoring Follow PTT DuoNeb. Pulmicort. IV Solu-Medrol. Negative for DVT. IV heparin. Consult urology for left hydronephrosis felt to be chronic
--- NOTE | 2022-07-30 15:15 | CA ---
Transthoracic Echo Report Name: Arpan Solis Age: 82 Gender: M : 1940 Exam Date: 07/30/2022 09:48 Exam Location: [facility] Ht (in): 72 Wt (lb): 211 Ordering Physician: Adebayo Ferro MD Attending/Referring Phys: Supervisor [employer] Keyla Zhao RDCS Procedure CPT: Indications: sob Cardiac Hx: Technical Quality: Contrast 1: Total Dose (mL): Contrast 2: Total Dose (mL): MEASUREMENTS (Male / Female) Normal Values 2D ECHO LV Diastolic Diameter PLAX 6.0 cm 4.2 - 5.9 / 3.9 - 5.3 cm LV Systolic Diameter PLAX 5.0 cm IVS Diastolic Thickness 1.0 cm 0.6 - 1.0 / 0.6 - 0.9 cm LVPW Diastolic Thickness 1.5 cm 0.6 - 1.0 / 0.6 - 0.9 cm LV Relative Wall Thickness 0.4 RV Internal Dim ED PLAX 2.7 cm LA Systolic Diameter LX 4.1 cm 3.0 - 4.0 / 2.7 - 3.8 cm LA Volume 90.7 cm??? 18 - 58 / 22 - 52 cm??? M-MODE Aortic Root Diameter MM 2.8 cm LA Systolic Diameter MM 4.1 cm LA Ao Ratio MM 1.5 MV E Point Septal Separation 0.8 cm AV Cusp Separation MM 1.7 cm DOPPLER MV Area PHT 3.9 cm??? Mitral E Point Velocity 132.2 cm/s Mitral A Point Velocity 67.5 cm/s Mitral E to A Ratio 2.0 MV Deceleration Time 192.4 ms FINDINGS Left Ventricle Left ventricular ejection fraction is estimated at 55 %. Left ventricular cavity size normal. Mildly increased left ventricular wall thickness. Right Ventricle Normal right ventricular size and function. Right ventricular systolic pressure within normal limits. Right Atrium Normal right atrial size. Left Atrium Mildly increased left atrial diameter. Severely increased left atrial volume. Mildly increased left atrial area. Mitral Valve Structurally normal mitral valve. Mild mitral regurgitation. Aortic Valve Trileaflet aortic valve. Tricuspid Valve Structurally normal tricuspid valve. Mild tricuspid regurgitation. Pulmonic Valve Structurally normal pulmonic valve. Pericardium Trace pericardial effusion. Aorta Normal size aortic root and proximal ascending aorta. CONCLUSIONS Normal LV systolic function Dilated left atrium Mild mitral regurgitation Previewed by: Dr. Kaden Lei MD (Electronically Signed) Final Date: 30 July 2022 15:14
[2022-07-30 16:47] LABS: Glucose,Whole Blood 147 mg/dL (70-110)
[2022-07-30] MEDS: SODIUM CHLORIDE 0.9% 1,000 ML IV SCH (17:13)
[2022-07-30 20:32] LABS: Glucose,Whole Blood 127 mg/dL (70-110)
[2022-07-31] MEDS: SODIUM CHLORIDE 0.9% 1,000 ML IV SCH (02:40)
[2022-07-31 03:07] LABS: Calcium 8.8 mg/dL (8.4-10.2); Potassium 4.7 mmol/L (3.5-5.1)
[2022-07-31 06:19] LABS: Glucose,Whole Blood 145 mg/dL (70-110)
[2022-07-31] MEDS: INSULIN ASPART (NovoLOG) 100 UNIT/ML VIAL SQ SCH ×2 (06:22→11:42)
[2022-07-31] MEDS: BUDESONIDE 1 MG/2 ML NEBU INHALATION SCH ×2 (07:17→20:46)
[2022-07-31] MEDS: IPRATROPIUM-ALBUTEROL 3 ML NEB INHALATION SCH ×4 (07:18→20:46)
[2022-07-31] MEDS: methylPREDNISolone SOD SUCCI 40 MG/ML 1 ML VIAL IV SCH (07:57)
[2022-07-31] MEDS: SODIUM BICARBONATE TAB 650 MG TAB PO SCH ×3 (07:57→21:11)
[2022-07-31] MEDS: CEFDINIR 300 MG CAP PO SCH ×2 (07:58→21:37)
[2022-07-31] MEDS: HEPARIN SOD,PORK IN 0.45% NACL 25,000 UNIT in 0.45% NACL 1 250ML.BAG IV SCH ×2 (10:00→21:12)
[2022-07-31 11:43] LABS: Glucose,Whole Blood 115 mg/dL (70-110)
--- NOTE | 2022-07-31 11:56 | P.GSCN ---
History of Present Illness Consult date: 07/31/22 Reason for Consult: Left hydronephrosis and bladder cancer History of present illness: This is an 82 yo male admitted to the hospital with hypoxia. Urology is consulted for left sided hydronephrosis. 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 He underwent RBUS during this hospital admission which showed left sided hydronephrosis. He has known hx of atrophic left kidney and per patient underwent Mag 3 renogram at [facility] which showed obstructed left kidney with less than 10% function. Denies any hx of kidney stone, denies any flank pain, gross hematuria. on presentation creat was 2.36 is down to 2.0 today. Review of Systems - Constitutional Denies fever, Denies weight loss - Cardiovascular Denies chest pain, Denies shortness of breath - Respiratory Denies cough, Denies 7 - Gastrointestinal Reports as per HPI - Genitourinary Denies dysuria, Denies hematuria - Integumentary Denies rash, Denies unusual bruising - Neurological Denies headaches, Denies syncope Past Medical History Past Medical History: Atrial Fibrillation, Cancer, Pulmonary Embolus (PE), Renal Disease, Sleep Apnea/CPAP/BIPAP Additional Past Medical History / Comment(s): HX OF POLYP, HX OF BLADDER CA. 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%, HX OF TINNITUS History of Any Multi-Drug Resistant Organisms: None Reported Past Surgical History: Cholecystectomy, Orthopedic Surgery Additional Past Surgical History / Comment(s): UROSTOMY, RT KNEE 2 ARTHROSC OPIES, 1 OPEN SX, LT KNEE ARTHROSCOPY X1 Past Anesthesia/Blood Transfusion Reactions: No Reported Reaction Smoking Status: Former smoker - Past Family History Father Family Medical History: Cancer Additional Family Medical History / Comment(s): PANCREATIC Medications and Allergies Home Medications Medication Instructions Recorded Confirmed Type Benzonatate [Tessalon Perle] 200 mg PO TID PRN 07/29/22 07/29/22 History Sennosides [Senokot] 8.6 mg PO DAILY PRN 07/29/22 07/29/22 History methylPREDNISolone [Medrol Dose See Taper PO DIRECTED 07/29/22 07/29/22 History Pack] Apixaban [Eliquis] 5 mg PO BID #60 tab 12/03/22 Rx Rivaroxaban [Xarelto] 20 mg PO DAILY #30 tab 07/31/22 Rx Allergies Allergy/AdvReac Type Severity Reaction Status Date / Time minocycline Allergy Swelling/fa Verified 07/29/22 08:45 ce/throat Surgical - Exam Vital Signs Temp Pulse Resp BP Pulse Ox 97.6 F 74 28 H 133/80 94 L 07/28/22 22:24 07/28/22 22:24 07/28/22 22:24 07/28/22 22:24 07/28/22 22:24 - General no distress, no pain - Eyes normal ocular movement, no pale - ENT normal nares, normal mucosa - Respiratory normal expansion, normal respiratory effort - Abdomen Abdomen: soft, non tender - Genitourinary urostomy viable, (+) parastomal hernia - Psychiatric oriented to time, oriented to person, oriented to place Results - Labs 07/28/22 23:07 07/31/22 02:29 Abnormal Lab Results - Last 24 Hours (Table) 07/30/22 07/30/22 07/30/22 Range/Units 11:54 12:17 12:17 APTT (22.0-30.0) sec Chloride 109 H (98-107) mmol/L BUN 52 H (9-20) mg/dL Creatinine 2.07 H (0.66-1.25) mg/dL Glucose 106 H (74-99) mg/dL POC Glucose (mg/dL) 120 H (70-110) mg/dL Procalcitonin 0.22 H (0.02-0.09) ng/mL 07/30/22 07/30/22 07/31/22 Range/Units 16:45 20:31 02:29 APTT (22.0-30.0) sec Chloride 109 H (98-107) mmol/L BUN 55 H (9-20) mg/dL Creatinine 2.00 H (0.66-1.25) mg/dL Glucose 152 H (74-99) mg/dL POC Glucose (mg/dL) 147 H 127 H (70-110) mg/dL Procalcitonin (0.02-0.09) ng/mL 07/31/22 07/31/22 07/31/22 Range/Units 02:29 06:18 08:47 APTT 38.8 H 43.2 H (22.0-30.0) sec Chloride (98-107) mmol/L BUN (9-20) mg/dL Creatinine (0.66-1.25) mg/dL Glucose (74-99) mg/dL POC Glucose (mg/dL) 145 H (70-110) mg/dL Procalcitonin (0.02-0.09) ng/mL Diabetes panel 07/30/22 07/31/22 Range/Units 12:17 02:29 Sodium 142 139 (137-145) mmol/L Potassium 4.4 4.7 (3.5-5.1) mmol/L Chloride 109 H 109 H (98-107) mmol/L Carbon Dioxide 23 24 (22-30) mmol/L BUN 52 H 55 H (9-20) mg/dL Creatinine 2.07 H 2.00 H (0.66-1.25) mg/dL Glucose 106 H 152 H (74-99) mg/dL Calcium 8.4 8.8 (8.4-10.2) mg/dL Calcium panel 07/30/22 07/31/22 Range/Units 12:17 02:29 Calcium 8.4 8.8 (8.4-10.2) mg/dL Pituitary panel 07/30/22 07/31/22 Range/Units 12:17 02:29 Sodium 142 139 (137-145) mmol/L Potassium 4.4 4.7 (3.5-5.1) mmol/L Chloride 109 H 109 H (98-107) mmol/L Carbon Dioxide 23 24 (22-30) mmol/L BUN 52 H 55 H (9-20) mg/dL Creatinine 2.07 H 2.00 H (0.66-1.25) mg/dL Glucose 106 H 152 H (74-99) mg/dL Calcium 8.4 8.8 (8.4-10.2) mg/dL Adrenal panel 07/30/22 07/31/22 Range/Units 12:17 02:29 Sodium 142 139 (137-145) mmol/L Potassium 4.4 4.7 (3.5-5.1) mmol/L Chloride 109 H 109 H (98-107) mmol/L Carbon Dioxide 23 24 (22-30) mmol/L BUN 52 H 55 H (9-20) mg/dL Creatinine 2.07 H 2.00 H (0.66-1.25) mg/dL Glucose 106 H 152 H (74-99) mg/dL Calcium 8.4 8.8 (8.4-10.2) mg/dL Assessment and Plan Assessment: 82 yo with left sided hydronephrosis, hx of small cell bladder cancer S/P cyst oprostatecomy in 2009. hx of chronic left hydronephrosis and 10% functioning left kidney. He is asymptomatic from his atrophic kidney. No further evaluation from urology standpoint, he has chronic left hydronephrosis and poorly functioning left kidney. given poor functioning of the kidney nephrostomy tube or stent unlikely to change his creat. At this point he can continue his yearly follow up with his urologist.
--- NOTE | 2022-07-31 12:15 | P.PN ---
Subjective patient is seen for follow-up for acute kidney injury on top of chronic kidney disease. He is admitted to the hospital with increased weakness and shortness of breath and tested positive for influenza A recently . Patient has history of bladder cancer status post cystectomy prostatectomy and urostomy in 2001 at [facility]. He also states that he has been informed that he has poor function on the left kidney. Ultrasound shows mode rate left hydronephrosis with significant thinning of the parenchyma. Urology has been consulted. Serum creatinine was 2.3 on initial admission and down to 2.0 today. No labs available for comparison. good urine output. Currently maintained on IV fluids at 50 mL an hour Objective - Vital Signs Vital signs: Vital Signs Temp 97.7 F 07/31/22 08:35 Pulse 76 07/31/22 11:31 Resp 17 07/31/22 08:35 BP 175/81 07/31/22 08:35 Pulse Ox 92 L 07/31/22 08:35 FiO2 Intake & Output 07/30/22 07/31/22 07/31/22 18:59 06:59 18:59 Intake Total 1434 288.037 118 Output Total 675 750 725 Balance 759 -461.963 -607 Intake: Intake, IV Titration 168.037 Amount Heparin Sod,Pork in 0.45% 168.037 NaCl 25,000 unit In 0.45 % NaCl 1 250ml.bag @ 10. 448 UNITS/KG/HR 10 mls/hr IV .Q24H [facility] Rx#: [id number] Oral 1434 120 118 Output: Urine 675 750 725 - Exam patient is awake, comfortable, in no acute distress Examination of the heart S1 and S2 Examination of the lungs bilateral breath sounds are heard Abdomen is soft nontender, urostomy intact Examination of the lower extremities shows no significant edema [employer]ER exam grossly intact - Labs CBC & Chem 7: 07/28/22 23:07 07/31/22 02:29 Labs: Abnormal Lab Results - Last 24 Hours (Table) 07/30/22 07/30/22 07/30/22 Range/Units 12:17 12: 16:45 APTT (22.0-30.0) sec Chloride 109 H (98-107) mmol/L BUN 52 H (9-20) mg/dL Creatinine 2.07 H (0.66-1.25) mg/dL Glucose 106 H (74-99) mg/dL POC Glucose (mg/dL) 147 H (70-110) mg/dL Procalcitonin 0.22 H (0.02-0.09) ng/mL 07/30/22 07/31/22 07/31/22 Range/Units 20:31 02:29 02:29 APTT 38.8 H (22.0-30.0) sec Chloride 109 H (98-107) mmol/L BUN 55 H (9-20) mg/dL Creatinine 2.00 H (0.66-1.25) mg/dL Glucose 152 H (74-99) mg/dL POC Glucose (mg/dL) 127 H (70-110) mg/dL Procalcitonin (0.02-0.09) ng/mL 07/31/22 07/31/22 07/31/22 Range/Units 06:18 08:47 11:42 APTT 43.2 H (22.0-30.0) sec Chloride (98-107) mmol/L BUN (9-20) mg/dL Creatinine (0.66-1.25) mg/dL Glucose (74-99) mg/dL POC Glucose (mg/dL) 145 H 115 H (70-110) mg/dL Procalcitonin (0.02-0.09) ng/mL Assessment and Plan Assessment: 1. Acute kidney injury, prerenal and associated with underlying infection. Currently nonoliguric. UA shows 2+ protein and moderate blood and significant WBCs. This is a urostomy specimen. No nephrotoxic agents on board. Maintained on IV fluids 2. Chronic kidney disease, baseline renal function not known. Patient states that she was told that one of his kidneys had only about 10-15% function. ultrasound shows moderate left hydronephrosis with significant thinning of the parenchyma. 3. Recent influenza A 4. Pneumonia possibly viral 5. Acute COPD exacerbation Plan: patient is stable for discharge from nephrology standpoint. Follow-up with urology as outpatient. Patient also needs to follow-up with nephrology. Avoid any nephrotoxic agents.
--- NOTE | 2022-07-31 12:25 | P.PN ---
Subjective Progress Note Date: 07/31/22 Patient has a known history of atrial fibrillation, pulmonary embolism, COPD, shocked of sleep apnea, history of bladder cancer resulting in a urostomy in 2001 decreased left kidney function at 50%, and chronic tinnitus. We have been consulted to patient for atrial flutter She presented to the ER with complaints of shortness of breath increased cough and fever. Patient is positive for influenza. His EKG showed atrial flutter with controlled ventricular. Patient's troponin was also slightly elevated at 0.048 this is believed to be secondary to the chronic renal failure. His BNP was 700. His chest x-ray showed mildly increased interstitial density but no evidence of heart failure. Patient is on a heparin drip for anticoagulation, will check coverage for Eliquis. Patient seen today resting comfortably in bed in no signs of acute distress. He denies chest pain or increased shortness of breath. He remains on heparin drip for probable pulmonary embolism. His coverage for Eliquis was checked, he is unable to afford Eliquis, his co-pay was for $400. Will start patient on Coumadin and continue heparin drip He underwent an echocardiogram which showed a normal LV function with dilated left atrium and mild atrial regurgitation. He remains in atrial fibrillation on the monitor. Objective - Vital Signs Vital signs: Vital Signs Temp 98.6 F 07/31/22 12:00 Pulse 61 07/31/22 12:00 Resp 18 07/31/22 12:00 BP 178/95 07/31/22 12:00 Pulse Ox 94 L 07/31/22 12:00 FiO2 Intake & Output 07/30/22 07/31/22 07/31/22 18:59 06:59 18:59 Intake Total 1434 288.037 118 Output Total 675 750 725 Balance 759 -461.963 -607 Intake: Intake, IV Titration 168.037 Amount Heparin Sod,Pork in 0.45% 168.037 NaCl 25,000 unit In 0.45 % NaCl 1 250ml.bag @ 10. 448 UNITS/KG/HR 10 mls/hr IV .Q24H [facility] Rx#: [id number] Oral 1434 120 118 Output: Urine 675 750 725 - Exam PHYSICAL EXAM: VITAL SIGNS: Reviewed. GENERAL: Well-developed in no acute distress. HEENT: Head is normocephalic. Pupils are equal, round. Sclerae anicteric. Mucous membranes of the mouth are moist. NECK: Supple. No JVD or thyromegaly RESPIRATORY: Respirations even and unlabored. Lungs diminished to auscultation bilaterally. CARDIO: irregular rate and rhythm. S1 and S2 heard. No murmur or gallops. EXTREMITIES: Normal range of motion. No clubbing or cyanosis. Peripheral pulses intact. Negative for bilateral lower extremity edema NEURO: Orientated to person, time, mood is appropriate - Labs CBC & Chem 7: 07/28/22 23:07 07/31/22 02:29 Labs: Abnormal Lab Results - Last 24 Hours (Table) 07/30/22 07/30/22 07/30/22 Range/Units 12:17 12:17 16:45 APTT (22.0-30.0) sec Chloride 109 H (98-107) mmol/L BUN 52 H (9-20) mg/dL Creatinine 2.07 H (0.66-1.25) mg/dL Glucose 106 H (74-99) mg/dL POC Glucose (mg/dL) 147 H (70-110) mg/dL Procalcitonin 0.22 H (0.02-0.09) ng/mL 07/30/22 07/31/22 07/31/22 Range/Units 20:31 02:29 02:29 APTT 38.8 H (22.0-30.0) sec Chloride 109 H (98-107) mmol/L BUN 55 H (9-20) mg/dL Creatinine 2.00 H (0.66-1.25) mg/dL Glucose 152 H (74-99) mg/dL POC Glucose (mg/dL) 127 H (70-110) mg/dL Procalcitonin (0.02-0.09) ng/mL 07/31/22 07/31/22 07/31/22 Range/Units 06:18 08:47 11:42 APTT 43.2 H (22.0-30.0) sec Chloride (98-107) mmol/L BUN (9-20) mg/dL Creatinine (0.66-1.25) mg/dL Glucose (74-99) mg/dL POC Glucose (mg/dL) 145 H 115 H (70-110) mg/dL Procalcitonin (0.02-0.09) ng/mL Assessment and Plan Assessment: New onset atrial flutter Elevated troponins believed to be secondary to renal failure. Plan: Continue heparin and transition patient to oral Coumadin Continue with telemetry monitoring Continue to follow kidney function. Further recommendations based on clinical course The above impression and plan of care have been discussed and directed by the signing physician. Becky Brooks, nurse practitioner, acting as scribe for signing physician.
--- NOTE | 2022-07-31 13:46 | P.PN ---
Subjective Progress Note Date: 07/31/22 Principal diagnosis: Shortness of breath, multifactorial related to acute pulmonary embolism, underlying COPD, chronic atrial fibrillation/flutter. This is an 82-year-old white male with history of multiple comorbidities including chronic atrial fibrillation, COPD, history of bladder cancer and previous ureterostomy in 2001 done at the [facility]. History of chronic renal failure/insufficiency and remote history of pulmonary embolism. For some reason the patient is not on any anticoagulation therapy in spite of his atrial fibrillation, patient recalls being on anticoagulation therapy years ago but none recently. Patient had a previous [id number] smoking history, presently does not smoke. Over the last 2 weeks, the patient has been developing worsening shortness of breath on exertion, occasional cough, minimal wheezing if any. Patient could not figure out why his shortness of breath has become pronounced over the last 2 weeks, he was recently diagnosed by a primary care physician as having influenza A infection. His symptoms at the time of mostly upper respiratory type of symptoms which have resolved mostly. Except for minimal occasional cough. Patient was evaluated in the ER, chest x-ray showed minimal interstitial densities, questionable underlying minimal fibrotic changes. No pneumonia and no congestive heart failure. CT of the chest showed focal nonspecific parenchymal densities, and possibly some component of by basilar bronchiectasis. Again the findings are nonspecific. His WBC count is 12.7 hemoglobin is 17.8. D-dimer was elevated at 1.47. However because of his renal profile with a BUN of 58 creatinine 2.36, patient could not have CT angiogram of the chest, he had a perfusion scan, which showed multiple mismatching defects, and by the radiologist as intermediate probability, I feel it is likely a high probability VQ scan, and based on the clinical history and considering the patient has atrial fibrillation, I am definitely recommending that the patient goes on heparin as per protocol. Troponin was also noted to be elevated at 0.048, his BNP level was normal. Urinalysis showed positive leukocyte esterase, and a bit of bacteriuria, and pyuria. Considering his shortness of breath, and considering his findings on the perfusion scan, I was asked to see him on consultation. I did recommend that we continue his bronchodilators, methylprednisolone, DuoNeb updrafts, Pulmicort, and definitely recommending heparin. Although his venous Doppler was negative Reevaluated today on 07/31/22, patient is doing better today, resting in bed, comfortable, not in any distress. He remains on heparin, and the plan is to eventually transition him to either Xarelto or eliquis depending on the coverage. Patient needs his anticoagulation therapy for his presumptive and highly suspicious pulmonary embolism also for his chronic atrial fibrillation. And I believe hopefully we can work on discharging the patient home in the next 24 hours. In the meantime is doing better, breathing easier, remains on bronchodilators for COPD. Today's PTT is 43.2. No other labs were done except for basic metabolic profile which seems to be abnormal with a BUN of 55 creatinine 2.0, remind you patient has chronic kidney disease Objective - Vital Signs Vital signs: Vital Signs Temp 98.6 F 07/31/22 12:00 Pulse 61 07/31/22 12:00 Resp 18 07/31/22 12:00 BP 178/95 07/31/22 12:00 Pulse Ox 94 L 07/31/22 12:00 FiO2 Intake & Output 07/30/22 07/31/22 07/31/22 18:59 06:59 18:59 Intake Total 1434 288.037 118 Output Total 675 750 725 Balance 759 -461.963 -607 Intake: Intake, IV Titration 168.037 Amount Heparin Sod,Pork in 0.45% 168.037 NaCl 25,000 unit In 0.45 % NaCl 1 250ml.bag @ 10. 448 UNITS/KG/HR 10 mls/hr IV .Q24H [facility] Rx#: [id number] Oral 1434 120 118 Output: Urine 675 750 725 - Exam Physical Exam: Revealed a 82-year-old white male in no distress, pleasant. O2 sats is 94% however he is on 3 L nasal cannula. Head: Atraumatic, normocephalic. HEENT:[Neck is supple.] [No neck masses.] [No thyromegaly.] [No JVD.] Chest: Diminished breath sound bilaterally no crackles or rhonchi or wheezes. Symmetrical chest expansion. Cardiac Exam: Irregular irregular rhythm. [Normal S1 and S2, no S3 gallop, no murmur.] Abdomen: [Soft, nontender, no megaly, no rebound, no guarding, normal bowel sounds.] Urostomy bag is noted Extremities: [No clubbing, no edema, no cyanosis.] Good pulses bilaterally. Psychiatric: Normal mood, affect and normal mental status examination. Skin: No rashes. Neurological Exam: [No focal neurologic deficit.] - Labs CBC & Chem 7: 07/28/22 23:07 07/31/22 02:29 Labs: Abnormal Lab Results - Last 24 Hours (Table) 07/30/22 07/30/22 07/30/22 Range/Units 12:17 16:45 20:31 APTT (22.0-30.0) sec Chloride (98-107) mmol/L BUN (9-20) mg/dL Creatinine (0.66-1.25) mg/dL Glucose (74-99) mg/dL POC Glucose (mg/dL) 147 H 127 H (70-110) mg/dL Procalcitonin 0.22 H (0.02-0.09) ng/mL 07/31/22 07/31/22 07/31/22 Range/Units 02:29 02:29 06:18 APTT 38.8 H (22.0-30.0) sec Chloride 109 H (98-107) mmol/L BUN 55 H (9-20) mg/dL Creatinine 2.00 H (0.66-1.25) mg/dL Glucose 152 H (74-99) mg/dL POC Glucose (mg/dL) 145 H (70-110) mg/dL Procalcitonin (0.02-0.09) ng/mL 07/31/22 07/31/22 Range/Units 08:47 11:42 APTT 43.2 H (22.0-30.0) sec Chloride (98-107) mmol/L BUN (9-20) mg/dL Creatinine (0.66-1.25) mg/dL Glucose (74-99) mg/dL POC Glucose (mg/dL) 115 H (70-110) mg/dL Procalcitonin (0.02-0.09) ng/mL Assessment and Plan Assessment: Impression: Acute dyspnea/ shortness of breath, most likely secondary to acute pulmonary embolism and suspect some underlying COPD as well as chronic atrial fibrillation/flutter. Recent influenza A infection. Chronic renal failure Chronic metabolic acidosis most likely secondary to renal impairment/chronic renal failure History of bladder cancer and previous cystectomy Remote history of pulmonary embolism History of obstructive sleep apnea syndrome. Recommendation: Continue heparin for now, check coverage for Xarelto or eliquis and eventually transitioned to one of them depending on his coverage. Continue bronchodilators Placed patient on prednisone burst and taper/placed on prednisone 40 mg daily starting today Continue oral bicarb. Echocardiogram is pending Considered to discharge the patient home hopefully in the next 24 hours. And follow-up on outpatient basis Continue to monitor renal status We will continue to follow
--- NOTE | 2022-07-31 13:53 | P.PN ---
Progress Note - Text Progress Note Date: 07/31/22 Chief Complaint: Short of breath This is a pleasant 82-year-old patient who follows with Dr. Scooter Martinez. Chronic stable medical conditions include atrial fibrillation, PE, COPD, obstructive sleep apnea, history of bladder cancer resulting in urostomy in 2001, decreased left kidney function at 50%, chronic tinnitus. Patient presents with progressive increase in shortness of breath for at least 3-4 weeks. Also wheezing. Occasionally coughing. Some dampening of sputum. Decreased appetite. No fever no chills. It's really short-winded on walking about 10-15 steps. No edema. No chest pain. Patient recently few days ago positive for influenza A. Admitted with COPD exacerbation, question about possible PE. Patient is chronically on eliquis. 07/30/2022: Some shortness of breath and wheezing. She better than yesterday. Placed on IV heparin. Continue bronchodilators, IV Solu-Medrol. Eating better. 07/31/2022: Sitting vaginal bed. Some shortness of breath. Oral intake -eating 100%. Remains on bronchodilators, Solu-Medrol. Active Medications Albuterol/Ipratropium (Ipratropium-Albuterol 3 Ml Neb) 3 ml INHALATION RT-QID PRN PRN Reason: Shortness Of Breath Or Wheezing Last Admin: 07/29/22 07:48 Dose: 3 ml Albuterol/Ipratropium (Ipratropium-Albuterol 3 Ml Neb) 3 ml INHALATION RT-QID [facility] Last Admin: 07/31/22 11:21 Dose: 3 ml Budesonide (Budesonide 1 Mg/2 Ml Nebu) 1 mg INHALATION RT-BID [facility] Last Admin: 07/31/22 07:17 Dose: 1 mg Cefdinir (Cefdinir 300 Mg Cap) 300 mg PO BID [facility]; Protocol Dextrose/Water (Dextrose 50% Syringe 50 Ml) 25 ml IVP PER PROTOCOL PRN; Protocol PRN Reason: Hypoglycemia Dextrose/Water (Dextrose 50% Syringe 50 Ml) 50 ml IVP PER PROTOCOL PRN; Protocol PRN Reason: Hypoglycemia Sodium Chloride (Saline 0.9%) 1,000 mls @ 50 mls/hr IV .Q20H [facility] Last Admin: 07/31/22 02:40 Dose: Not Given Heparin Sodium/Sodium Chloride (25,000 unit/ Sodium Chloride) 250 mls @ 10 mls/hr IV .Q24H [facility]; Protocol Last Titration: 07/31/22 04:04 Dose: 15.48 units/kg/hr, 14.816 mls/hr Insulin Aspart (Insulin Aspart (Novolog) 100 Unit/Ml Vial) 0 unit SQ ACHS [facility]; Protocol Last Admin: 07/31/22 11:42 Dose: Not Given Morphine Sulfate (Morphine Sulfate 4 Mg/Ml Syringe) 4 mg IV Q4HR PRN PRN Reason: Severe Pain (Scale 7 to 10) Naloxone HCl (Naloxone 0.4 Mg/Ml 1 Ml Vial) 0.2 mg IV Q2M PRN PRN Reason: Opioid Reversal Ondansetron HCl (Ondansetron 4 Mg/2 Ml Vial) 4 mg IVP Q8HR PRN PRN Reason: Nausea And Vomiting Prednisone (Prednisone 20 Mg Tab) 40 mg PO DAILY [facility] Sodium Bicarbonate (Sodium Bicarbonate Tab 650 Mg Tab) 650 mg PO TID [facility] Last Admin: 07/31/22 07:57 Dose: 650 mg Past medical history to include: Atrial fibrillation, pulmonary embolism, sleep apnea, bladder cancer with surgery with the urostomy in 2001, if kidney function 10-15%, tinnitus Social history: Lives alone. . Smoked about negative for close to 40 years stopped in 22 years ago. Alcohol rarely. Physical examination: VITAL SIGNS: 98.6, 61, 18, 1 78 x 95, 94% on 3 L GENERAL: Sitting on the edge of the bed, short of breath with better. EYES: Pupils equal. Conjunctiva normal. HEENT: External appearance of nose and ears normal, oral cavity grossly normal. NECK: JVD not raised; masses not palpable. HEART: Irregular heart sounds; no edema. LUNGS:[ Respiratory rate increased; diminished breath sounds, prolonged expiration. ABDOMEN: Soft, nontender, liver spleen not palpable, no masses palpable. PSYCH: [Alert and oriented x3; mood and affect tired MUSCULOSKELETAL:No Clubbing/cyanosis;muscles-grossly intact, OA , INVESTIGATIONS, reviewed in the clinical context: 2-D echocardiogram: EF 55%. Lower extremity Doppler: Negative for DVT bilaterally CT chest without contrast: Mild to moderate chronic changes with moderate bilateral lower lobe bronchiectasis and a few scattered upper lobe interstitial densities UA: Protein 2+ leukoesterase WBC few bacteria 07/30/2022: Potassium 4.4 BUN 52 creatinine 2.07 Renal ultrasound: Right kidney very lobulated contour. Left kidney: Possible severe hydronephrosis with effaced renal parenchyma. WBC 12.7 hemoglobin 17.8 platelets 123 sodium 139 potassium 4.7 bicarb 19 BUN 58 creatinine 2.36 Troponin I 0.048 proBNP 700 EKG tracing personally reviewed by me-atrial flutter, rate 84, right bundle- branch block pattern VQ scan: Intermediate probability for PE. Assessment and plan: -Acute COPD exacerbation in a previous smoker: Improving Patient is being progressively short of breath for about 3-4 weeks at least. Short of breath. Wheezing. Occasional cough with sputum production. Possible acute bronchitis. Patient recently tested positive for influenza A. It has been a few days. DuoNeb every 4. Nebulize Pulmicort. IV [id number] to prednisone. Omnicef -Acute PE. IV heparin. Follow with pulmonary. -Chronic kidney disease. 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 Seen by Dr. herrera from urology. -Metabolic acidosis from renal function Sodium bicarbonate -Possible atrial flutter fibrillation. Consult cardiology. 2-D echo. -IV heparin monitoring Follow PTT DuoNeb. Pulmicort. Change IV Solu-Medrol to oral prednisone. Will switch patient from IV heparin to eliquis this evening. Looking for DC 24 hours.
[2022-07-31] MEDS ORDERED: methylPREDNISolone SOD SUCCI 40 MG/ML 1 ML VIAL IV SCH (14:19)
[2022-07-31] MEDS: amLODIPine 5 MG TAB PO SCH (14:58)
[2022-07-31] MEDS: predniSONE 20 MG TAB PO SCH (14:58)
[2022-07-31] MEDS ORDERED: WARFARIN 7.5 MG TAB PO ONE (18:00)
[2022-07-31] MEDS ORDERED: APIXABAN 5 MG TAB PO SCH (21:00)
[2022-08-01 04:17] LABS: INR 1.1 (<1.2); Prothrombin Time 11.5 sec (9.0-12.0)
[2022-08-01 04:19] LABS: Calcium 8.7 mg/dL (8.4-10.2); Magnesium 2.1 mg/dL (1.6-2.3); Potassium 5.1 mmol/L (3.5-5.1); Total Bilirubin 0.5 mg/dL (0.2-1.3); Total Protein 5.8 g/dL (6.3-8.2)
[2022-08-01 04:22] LABS: HCT 46.8 % (39.0-53.0); HGB 14.9 gm/dL (13.0-17.5); Hypochromasia Slight; MCH 30.3 pg (25.0-35.0); MCHC 31.8 g/dL (31.0-37.0); Mean Platelet Volume 9.3; Platelet Count 116 k/uL (150-450); RBC 4.92 m/uL (4.30-5.90); WBC 11.1 k/uL (3.8-10.6)
[2022-08-01] MEDS: predniSONE 20 MG TAB PO SCH (08:12)
[2022-08-01] MEDS: CEFDINIR 300 MG CAP PO SCH ×2 (08:12→20:00)
[2022-08-01] MEDS: amLODIPine 5 MG TAB PO SCH ×2 (08:12→20:00)
[2022-08-01] MEDS: SODIUM BICARBONATE TAB 650 MG TAB PO SCH (08:12)
[2022-08-01] MEDS: IPRATROPIUM-ALBUTEROL 3 ML NEB INHALATION SCH ×4 (08:49→20:14)
[2022-08-01] MEDS: BUDESONIDE 1 MG/2 ML NEBU INHALATION SCH ×2 (08:49→20:22)
--- NOTE | 2022-08-01 09:33 | P.PN ---
Subjective Patient is seen in follow-up for acute kidney injury and chronic kidney disease. Renal function a little better today. Has good output from urostomy. Denies chest pain or shortness of breath. Oral intake is good. Vital signs are stable. General: Awake. No acute distress. HEENT: Head exam is unremarkable. LUNGS: Breath sounds decreased. HEART: Rate and Rhythm are regular. ABDOMEN: Soft, no distention. Urostomy noted. EXTREMITITES: No edema. Objective - Vital Signs Vital signs: Vital Signs Temp 98.1 F 08/01/22 08:15 Pulse 75 08/01/22 09:06 Resp 17 08/01/22 08:15 BP 170/79 08/01/22 08:15 Pulse Ox 97 08/01/22 08:50 FiO2 Intake & Output 07/31/22 08/01/22 08/01/22 18:59 06:59 18:59 Intake Total 557.948 893.953 Output Total 1050 1350 Balance -492.052 -456.047 Intake: IV 30 Invasive Line 1 20 Invasive Line 2 10 Intake, IV Titration 203.948 23.953 Amount Heparin Sod,Pork in 0.45% 203.948 23.953 NaCl 25,000 unit In 0.45 % NaCl 1 250ml.bag @ 10. 448 UNITS/KG/HR 10 mls/hr IV .Q24H [facility] Rx#: [id number] Oral 354 840 Output: Urine 1050 1350 Other: # Bowel Movements 0 - Labs CBC & Chem 7: 08/01/22 01:38 08/01/22 01:38 Labs: Abnormal Lab Results - Last 24 Hours (Table) 07/31/22 07/31/22 07/31/22 Range/Units 08:47 11:42 15:23 WBC (3.8-10.6) k/uL Plt Count (150-450) k/uL APTT 43.2 H 50.0 H (22.0-30.0) sec Chloride (98-107) mmol/L BUN (9-20) mg/dL Creatinine (0.66-1.25) mg/dL Glucose (74-99) mg/dL POC Glucose (mg/dL) 115 H (70-110) mg/dL Total Protein (6.3-8.2) g/dL Albumin (3.5-5.0) g/dL 08/01/22 08/01/22 08/01/22 Range/Units 01:38 01:38 01:38 WBC 11.1 H (3.8-10.6) k/uL Plt Count 116 L (150-450) k/uL APTT 44.2 H (22.0-30.0) sec Chloride 111 H (98-107) mmol/L BUN 52 H (9-20) mg/dL Creatinine 1.88 H (0.66-1.25) mg/dL Glucose 138 H (74-99) mg/dL POC Glucose (mg/dL) (70-110) mg/dL Total Protein 5.8 L (6.3-8.2) g/dL Albumin 3.0 L (3.5-5.0) g/dL Assessment and Plan Plan: Assessment: 1. Acute kidney injury mostly prerenal secondary to infection. Nonoliguric. Renal function improving. Creatinine 1.88 today. 2. Chronic kidney disease. Unknown baseline renal function. Lobulated right kidney without hydronephrosis. Moderate dilation of the left renal collecting system noted on ultrasound. Urology following. No interventions planned. 3. History of bladder cancer status post urostomy. 4. Acute COPD exacerbation. 5. Recent influenza infection. 6. Metabolic acidosis secondary to acute kidney injury maintain on oral bicarb. 7. Questionable PE on IV heparin. 8. Hypertension with chronic kidney disease. Exacerbated by steroids. Plan: Decrease bicarbonate to once daily. Encourage oral intake. Avoid nephrotoxins. Increase amlodipine to 5 mg twice daily. Hold for systolic blood pressure less than 125. Follow-up outpatient in 1-2 weeks post discharge.
--- NOTE | 2022-08-01 11:06 | P.PN ---
Subjective This is an 82-year-old male with a past medical history of paroxysmal atrial fibrillation, COPD, pulmonary embolism, obstructive sleep apnea,history of bladder cancer resulting in a urostomy in 2001 decreased left kidney function at 50%, and chronic tinnitus. Patient follows in the office with Dr. Pagan. Patient presents to the hospital with influenza. Cardiology was consulted for atrial flutter with RVR. Patient seen and examined at bedside, no acute distress. He denies any shortness of breath, or chest pain. He continues to be in atrial flutter with controlled rates, heart rates high 40s50s. His echocardiogram revealed EF 55%. He's currently on IV heparin drip bridge to Coumadin. GENERAL: Well-appearing, well-nourished and in no acute distress. NECK: Supple without JVD or thyromegaly. LUNGS: Breath sounds clear to auscultation bilaterally. Respiration equal and unlabored. No wheezes, rales or rhonchi. HEART: Irregular rate and rhythm without murmurs, rubs or gallops. S1 and S2 heard. EXTREMITIES: Normal range of motion, no edema. No clubbing or cyanosis. Peripheral pulses intact. ASSESSMENT Paroxysmal atrial fibrillation, currently on coumadin Typical Atrial flutter Influenza Elevated troponins, likely secondary to acute renal failure. History of pulmonary embolism COPD PLAN Patient is stable from a cardiology perspective, ok to be discharged home with Coumadin, patient may bridge with lovenox No beta argenis or rate lowering agents secondary to bradycardia Continue coumadin Follow up outpatient with Dr. Pagan in 1-2 weeks Please reach out with any further questions or concerns Nurse Practitioner note has been reviewed, I agree with a documented findings and plan of care. Patient was seen and examined. Objective - Vital Signs Vital signs: Vital Signs Temp 98.1 F 08/01/22 08:15 Pulse 75 08/01/22 09:06 Resp 17 08/01/22 08:15 BP 170/79 08/01/22 08:15 Pulse Ox 97 08/01/22 08:50 FiO2 Intake & Output 07/31/22 08/01/22 08/01/22 18:59 06:59 18:59 Intake Total 557.948 893.953 540 Output Total 1050 1350 300 Balance -492.052 -456.047 240 Intake: IV 30 Invasive Line 1 20 Invasive Line 2 10 Intake, IV Titration 203.948 23.953 Amount Heparin Sod,Pork in 0.45% 203.948 23.953 NaCl 25,000 unit In 0.45 % NaCl 1 250ml.bag @ 10. 448 UNITS/KG/HR 10 mls/hr IV .Q24H [facility] Rx#: [id number] Oral 354 840 540 Output: Urine 1050 1350 300 Other: # Bowel Movements 0 - Labs CBC & Chem 7: 08/01/22 01:38 08/01/22 01:38 Labs: Abnormal Lab Results - Last 24 Hours (Table) 07/31/22 07/31/22 08/01/22 Range/Units 11:42 15:23 01:38 WBC (3.8-10.6) k/uL Plt Count (150-450) k/uL APTT 50.0 H (22.0-30.0) sec Chloride 111 H (98-107) mmol/L BUN 52 H (9-20) mg/dL Creatinine 1.88 H (0.66-1.25) mg/dL Glucose 138 H (74-99) mg/dL POC Glucose (mg/dL) 115 H (70-110) mg/dL Total Protein 5.8 L (6.3-8.2) g/dL Albumin 3.0 L (3.5-5.0) g/dL 08/01/22 08/01/22 Range/Units 01:38 01:38 WBC 11.1 H (3.8-10.6) k/uL Plt Count 116 L (150-450) k/uL APTT 44.2 H (22.0-30.0) sec Chloride (98-107) mmol/L BUN (9-20) mg/dL Creatinine (0.66-1.25) mg/dL Glucose (74-99) mg/dL POC Glucose (mg/dL) (70-110) mg/dL Total Protein (6.3-8.2) g/dL Albumin (3.5-5.0) g/dL
--- NOTE | 2022-08-01 14:36 | P.PN ---
Subjective Progress Note Date: 08/01/22 Principal diagnosis: Shortness of breath. Reevaluated today on 07/31/22, patient is doing better today, resting in bed, comfortable, not in any distress. He remains on heparin, and the plan is to eventually transition him to either Xarelto or eliquis depending on the coverage. Patient needs his anticoagulation therapy for his presumptive and highly suspicious pulmonary embolism also for his chronic atrial fibrillation. And I believe hopefully we can work on discharging the patient home in the next 24 hours. In the meantime is doing better, breathing easier, remains on b ronchodilators for COPD. Today's PTT is 43.2. No other labs were done except for basic metabolic profile which seems to be abnormal with a BUN of 55 creatinine 2.0, remind you patient has chronic kidney disease Progress note dated 08/01/2022. The patient is seen today in room 353. He remains on IV heparin. The patient's also on 3 L of oxygen. The patient is suspected to have a pulmonary embolism. The patient is a DO NOT RESUSCITATE patient. He has no complaints today. Lab data today includes a white count 11.1, hemoglobin 14.9, hematocrit 46.8, platelet count 260,000. PTT is 44.2. Sodium 140, potassium 5.1, chlorides 111, CO2 27, BUN 52, and creatinine 1.88. Objective - Vital Signs Vital signs: Vital Signs Temp 98.3 F 08/01/22 11:39 Pulse 72 08/01/22 12:30 Resp 17 08/01/22 11:39 BP 184/85 08/01/22 11:39 Pulse Ox 95 08/01/22 11:39 FiO2 Intake & Output 07/31/22 08/01/22 08/01/22 18:59 06:59 18:59 Intake Total 557.948 893.953 660 Output Total 1050 1350 300 Balance -492.052 -456.047 360 Intake: IV 30 Invasive Line 1 20 Invasive Line 2 10 Intake, IV Titration 203.948 23.953 Amount Heparin Sod,Pork in 0.45% 203.948 23.953 NaCl 25,000 unit In 0.45 % NaCl 1 250ml.bag @ 10. 448 UNITS/KG/HR 10 mls/hr IV .Q24H [facility] Rx#: [id number] Oral 354 840 660 Output: Urine 1050 1350 300 Other: # Bowel Movements 0 - Exam No acute distress, oriented 3. No acute distress, currently on 3 L of oxygen. Saturations are 98%. HEENT examination is grossly unremarkable. Neck supple. Full range of motion. No adenopathy thyromegaly or neck vein distention. Cardiovascular examination reveals an irregular rhythm and rate. S1-S2 normal. No S3 or S4. No discernible murmur noted. Heart rate 72 bpm. Lungs reveal clear breath sounds. Breath sounds are equal bilaterally. No adventitious lung sounds including wheezes rhonchi or crackles. Abdomen soft bowel sounds are heard. No masses or tenderness. Extremities are intact. No cyanosis clubbing or edema. Skin is without rash or lesion. Neurologic examination is brief but nonfocal. - Labs CBC & Chem 7: 08/01/22 01:38 08/01/22 01:38 Labs: Abnormal Lab Results - Last 24 Hours (Table) 07/31/22 08/01/22 08/01/22 Range/Units 15:23 01:38 01:38 WBC (3.8-10.6) k/uL Plt Count (150-450) k/uL APTT 50.0 H 44.2 H (22.0-30.0) sec Chloride 111 H (98-107) mmol/L BUN 52 H (9-20) mg/dL Creatinine 1.88 H (0.66-1.25) mg/dL Glucose 138 H (74-99) mg/dL Total Protein 5.8 L (6.3-8.2) g/dL Albumin 3.0 L (3.5-5.0) g/dL 08/01/22 Range/Units 01:38 WBC 11.1 H (3.8-10.6) k/uL Plt Count 116 L (150-450) k/uL APTT (22.0-30.0) sec Chloride (98-107) mmol/L BUN (9-20) mg/dL Creatinine (0.66-1.25) mg/dL Glucose (74-99) mg/dL Total Protein (6.3-8.2) g/dL Albumin (3.5-5.0) g/dL Assessment and Plan Assessment: Acute shortness of breath, secondary to acute pulmonary embolism, as well as COPD, and chronic atrial fibrillation. Recent influenza A infection. Chronic renal failure. Chronic metabolic acidosis. History of bladder cancer, with previous cystectomy. Remote history of pulmonary embolism. History of obstructive sleep apnea syndrome. Plan: Plan dated 07/30/2022. The patient continues on bronchodilators. He also continues on prednisone with a burst and taper. Additional recommendations and suggestions are forthcoming. Labs, x-rays, medications are reviewed. We will continue to follow make recommendations along the way. Possible discharge within the next 24-48 hours. Prognosis is guarded. Time with Patient: Less than 30
--- NOTE | 2022-08-01 15:05 | P.PN ---
Progress Note - Text Progress Note Date: 08/01/22 Chief Complaint: Short of breath This is a pleasant 82-year-old patient who follows with Dr. Scooter Martinez. Chronic stable medical conditions include atrial fibrillation, PE, COPD, obstructive sleep apnea, history of bladder cancer resulting in urostomy in 2001, decreased left kidney function at 50%, chronic tinnitus. Patient presents with progressive increase in shortness of breath for at least 3-4 weeks. Also wheezing. Occasionally coughing. Some dampening of sputum. Decreased appetite. No fever no chills. It's really short-winded on walking about 10-15 steps. No edema. No chest pain. Patient recently few days ago positive for influenza A. Admitted with COPD exacerbation, question about possible PE. Patient is chronically on eliquis. 07/30/2022: Some shortness of breath and wheezing. She better than yesterday. Placed on IV heparin. Continue bronchodilators, IV Solu-Medrol. Eating better. 07/31/2022: Sitting edge of bed. Some shortness of breath. Oral intake -eating 100%. Remains on bronchodilators, Solu-Medrol. 08/01/2022: Breathing better. Oral intake good. On bronchodilators, oral prednisone. He started on Coumadin. Start Lovenox for bridging. This evening.. IV heparin. Active Medications Albuterol/Ipratropium (Ipratropium-Albuterol 3 Ml Neb) 3 ml INHALATION RT-QID PRN PRN Reason: Shortness Of Breath Or Wheezing Last Admin: 07/29/22 07:48 Dose: 3 ml Albuterol/Ipratropium (Ipratropium-Albuterol 3 Ml Neb) 3 ml INHALATION RT-QID [facility] Last Admin: 08/01/22 12:17 Dose: 3 ml Amlodipine Besylate (Amlodipine 5 Mg Tab) 5 mg PO BID [facility] Budesonide (Budesonide 1 Mg/2 Ml Nebu) 1 mg INHALATION RT-BID [facility] Last Admin: 08/01/22 08:49 Dose: 1 mg Cefdinir (Cefdinir 300 Mg Cap) 300 mg PO BID [facility]; Protocol Last Admin: 08/01/22 08:12 Dose: 300 mg Enoxaparin Sodium (Enoxaparin 100 Mg/Ml Syringe) 100 mg SQ Q12HR [facility] Heparin Sodium/Sodium Chloride (25,000 unit/ Sodium Chloride) 250 mls @ 10 mls/hr IV .Q24H [facility]; Protocol Stop: 08/01/22 21:00 Last Admin: 07/31/22 21:12 Dose: 15.48 units/kg/hr, 14.816 mls/hr Miscellaneous Information (Warfarin Per Pharmacy) 1 each MISCELLANE DIRECTED PRN; Protocol PRN Reason: Per Protocol Naloxone HCl (Naloxone 0.4 Mg/Ml 1 Ml Vial) 0.2 mg IV Q2M PRN PRN Reason: Opioid Reversal Ondansetron HCl (Ondansetron 4 Mg/2 Ml Vial) 4 mg IVP Q8HR PRN PRN Reason: Nausea And Vomiting Prednisone (Prednisone 20 Mg Tab) 40 mg PO DAILY [facility] Last Admin: 08/01/22 08:12 Dose: 40 mg Sodium Bicarbonate (Sodium Bicarbonate Tab 650 Mg Tab) 650 mg PO DAILY [facility] Warfarin Sodium (Warfarin 5 Mg Tab) 5 mg PO ONCE ONE Stop: 08/01/22 18:01 Past medical history to include: Atrial fibrillation, pulmonary embolism, sleep apnea, bladder cancer with surgery with the urostomy in 2001, if kidney function 10-15%, tinnitus Social history: Lives alone. . Smoked about negative for close to 40 years stopped in 22 years ago. Alcohol rarely. Physical examination: VITAL SIGNS: 98.3, 80, 17, 180/85, 95% room air GENERAL: Exciting, some shortness of breath EYES: Pupils equal. Conjunctiva normal. HEENT: External appearance of nose and ears normal, oral cavity grossly normal. NECK: JVD not raised; masses not palpable. HEART: Irregular heart sounds; no edema. LUNGS:[ Respiratory rate increased; diminished breath sounds ABDOMEN: Soft, nontender, liver spleen not palpable, no masses palpable. PSYCH: [Alert and oriented x3; mood and affect tired MUSCULOSKELETAL:No Clubbing/cyanosis;muscles-grossly intact, OA , INVESTIGATIONS, reviewed in the clinical context: 08/01/2022: White count 9.1 hemoglobin 14.9 potassium 5.1 BUN 52 creatinine 1.88 2-D echocardiogram: EF 55%. Lower extremity Doppler: Negative for DVT bilaterally CT chest without contrast: Mild to moderate chronic changes with moderate bilateral lower lobe bronchiectasis and a few scattered upper lobe interstitial densities UA: Protein 2+ leukoesterase WBC few bacteria 07/30/2022: Potassium 4.4 BUN 52 creatinine 2.07 Renal ultrasound: Right kidney very lobulated contour. Left kidney: Possible severe hydronephrosis with effaced renal parenchyma. WBC 12.7 hemoglobin 17.8 platelets 123 sodium 139 potassium 4.7 bicarb 19 BUN 58 creatinine 2.36 Troponin I 0.048 proBNP 700 EKG tracing personally reviewed by me-atrial flutter, rate 84, right bundle- branch block pattern VQ scan: Intermediate probability for PE. Assessment and plan: -Acute COPD exacerbation in a previous smoker: Improving Patient is being progressively short of breath for about 3-4 weeks at least. Short of breath. Wheezing. Occasional cough with sputum production. Possible acute bronchitis. Patient recently tested positive for influenza A. It has been a few days. DuoNeb 4 times a day. Nebulize Pulmicort. prednisone. Omnicef -Acute PE. IV heparin-changed to Lovenox. Coumadin restarted.. Follow with pulmonary. -Chronic kidney disease. 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 Seen by Dr. herrera from urology. -Metabolic acidosis from renal function Sodium bicarbonate -Possible atrial flutter fibrillation. Consult cardiology. IV heparin. Start Coumadin today. -IV heparin monitoring Follow PTT -Coumadin monitoring Start Coumadin today. DuoNeb. Pulmicort. oral prednisone. Change IV heparin to Lovenox this evening for bridging, this evening. Start Coumadin today
[2022-08-01] MEDS: CHLORTHALIDONE 25 MG TAB PO SCH (16:35)
[2022-08-01] MEDS ORDERED: WARFARIN 5 MG TAB PO ONE (18:00)
[2022-08-01] MEDS: ENOXAPARIN 100 MG/ML SYRINGE SQ SCH (20:00)
[2022-08-02] MEDS ORDERED: cloNIDine HCL 0.1 MG TAB PO STA (00:20)
[2022-08-02 08:18] LABS: INR 1.3 (<1.2); Prothrombin Time 13.3 sec (9.0-12.0)
[2022-08-02 08:21] LABS: HCT 46.5 % (39.0-53.0); Hypochromasia Slight; MCH 30.5 pg (25.0-35.0); MCHC 32.3 g/dL (31.0-37.0); MCV 94.4 fL (80.0-100.0); Platelet Count 103 k/uL (150-450); RBC 4.93 m/uL (4.30-5.90); RDW 13.9 % (11.5-15.5); WBC 9.9 k/uL (3.8-10.6)
[2022-08-02 08:30] LABS: Calcium 8.4 mg/dL (8.4-10.2); Potassium 4.7 mmol/L (3.5-5.1)
[2022-08-02] MEDS: amLODIPine 5 MG TAB PO SCH (08:36)
[2022-08-02] MEDS: predniSONE 20 MG TAB PO SCH (08:36)
[2022-08-02] MEDS: ENOXAPARIN 100 MG/ML SYRINGE SQ SCH (08:37)
[2022-08-02] MEDS: CEFDINIR 300 MG CAP PO SCH (08:37)
[2022-08-02] MEDS: CHLORTHALIDONE 25 MG TAB PO SCH (08:37)
[2022-08-02] MEDS ORDERED: SODIUM BICARBONATE TAB 650 MG TAB PO SCH (09:00)
[2022-08-02] MEDS: BUDESONIDE 1 MG/2 ML NEBU INHALATION SCH (09:15)
[2022-08-02] MEDS: IPRATROPIUM-ALBUTEROL 3 ML NEB INHALATION SCH ×3 (09:16→16:02)
--- NOTE | 2022-08-02 10:44 | P.PN ---
Subjective Patient is seen in follow-up for acute kidney injury and chronic kidney disease. Renal function stable. Has good output from urostomy. Denies chest pain or shortness of breath. Oral intake is good. No active complaints. Vital signs are stable. General: Awake. No acute distress. HEENT: Head exam is unremarkable. LUNGS: Breath sounds decreased. HEART: Rate and Rhythm are regular. ABDOMEN: Soft, no distention. Urostomy noted. EXTREMITITES: No edema. Objective - Vital Signs Vital signs: Vital Signs Temp 98.4 F 08/02/22 08:00 Pulse 51 L 08/02/22 08:00 Resp 19 08/02/22 08:00 BP 134/60 08/02/22 08:00 Pulse Ox 94 L 08/02/22 08:00 FiO2 Intake & Output 08/01/22 08/02/22 08/02/22 18:59 06:59 18:59 Intake Total 780 870 130 Output Total 300 1100 Balance 480 -230 130 Intake: IV 20 10 Invasive Line 2 20 10 Intake, IV Titration 250 Amount Heparin Sod,Pork in 0.45% 250 NaCl 25,000 unit In 0.45 % NaCl 1 250ml.bag @ 10. 448 UNITS/KG/HR 10 mls/hr IV .Q24H [facility] Rx#: [id number] Oral 780 600 120 Output: Urine 300 1100 - Labs CBC & Chem 7: 08/02/22 07:23 08/02/22 07:23 Labs: Abnormal Lab Results - Last 24 Hours (Table) 08/02/22 08/02/22 08/02/22 Range/Units 07:23 07:23 07:23 Plt Count 103 L (150-450) k/uL PT 13.3 H (9.0-12.0) sec INR 1.3 H (<1.2) Chloride 111 H (98-107) mmol/L BUN 44 H (9-20) mg/dL Creatinine 1.74 H (0.66-1.25) mg/dL Assessment and Plan Plan: Assessment: 1. Acute kidney injury mostly prerenal secondary to infection. Nonoliguric. Renal function improved. Creatinine 1.74 today. 2. Chronic kidney disease. Unknown baseline renal function. Lobulated right kidney without hydronephrosis. Moderate dilation of the left renal collecting system noted on ultrasound. Urology following. No interventions planned. 3. History of bladder cancer status post urostomy. 4. Acute COPD exacerbation. 5. Recent influenza infection. 6. Metabolic acidosis secondary to acute kidney injury maintained on oral bicarb. 7. Questionable PE on IV heparin. 8. Hypertension with chronic kidney disease. Exacerbated by steroids. Blood pressure 134/60 this morning. Plan: Encourage oral intake. Avoid nephrotoxins. Dose of amlodipine increased yesterday and chlorthalidone was also added. His blood pressure sitting persistently above 140/90, may add hydralazine. Follow-up outpatient in 1-2 weeks post discharge.
--- NOTE | 2022-08-02 13:40 | P.PN ---
Subjective Progress Note Date: 08/02/22 Principal diagnosis: Shortness of breath. Reevaluated today on 07/31/22, patient is doing better today, resting in bed, comfortable, not in any distress. He remains on heparin, and the plan is to eventually transition him to either Xarelto or eliquis depending on the coverage. Patient needs his anticoagulation therapy for his presumptive and highly suspicious pulmonary embolism also for his chronic atrial fibrillation. And I believe hopefully we can work on discharging the patient home in the next 24 hours. In the meantime is doing better, breathing easier, remains on b ronchodilators for COPD. Today's PTT is 43.2. No other labs were done except for basic metabolic profile which seems to be abnormal with a BUN of 55 creatinine 2.0, remind you patient has chronic kidney disease Progress note dated 08/01/2022. The patient is seen today in room 353. He remains on IV heparin. The patient's also on 3 L of oxygen. The patient is suspected to have a pulmonary embolism. The patient is a DO NOT RESUSCITATE patient. He has no complaints today. Lab data today includes a white count 11.1, hemoglobin 14.9, hematocrit 46.8, platelet count 260,000. PTT is 44.2. Sodium 140, potassium 5.1, chlorides 111, CO2 27, BUN 52, and creatinine 1.88. Progress note dated 08/02/2022. The patient is seen again in room 353. 82-year-old male with history of influenza. The patient is a DO NOT RESUSCITATE patient. Currently, he's on room air. Is not receiving any IV fluids. He is hoping to be discharged soon. White count 9.9, hemoglobin 15, hematocrit 46.5, and platelet count 203,000. Sodium 137, potassium 4.7, chlorides 111, CO2 22, BUN 44, and creatinine 1.74. Calcium is 8.4. Objective - Vital Signs Vital signs: Vital Signs Temp 98.4 F 08/02/22 08:00 Pulse 51 L 08/02/22 08:00 Resp 19 08/02/22 08:00 BP 134/60 08/02/22 08:00 Pulse Ox 94 L 08/02/22 08:00 FiO2 Intake & Output 08/01/22 08/02/22 08/02/22 18:59 06:59 18:59 Intake Total 780 870 130 Output Total 300 1100 Balance 480 -230 130 Intake: IV 20 10 Invasive Line 2 20 10 Intake, IV Titration 250 Amount Heparin Sod,Pork in 0.45% 250 NaCl 25,000 unit In 0.45 % NaCl 1 250ml.bag @ 10. 448 UNITS/KG/HR 10 mls/hr IV .Q24H ELIECER Rx#: [id number] Oral 780 600 120 Output: Urine 300 1100 - Exam No acute distress, oriented 3. No acute distress, currently on room air. Saturations are 96 %. HEENT examination is grossly unremarkable. Neck supple. Full range of motion. No adenopathy thyromegaly or neck vein distention. Cardiovascular examination reveals an irregular rhythm and rate. S1-S2 normal. No S3 or S4. No discernible murmur noted. Heart rate 51 bpm. Lungs reveal clear breath sounds. Breath sounds are equal bilaterally. No adventitious lung sounds including wheezes rhonchi or crackles. Abdomen soft bowel sounds are heard. No masses or tenderness. Extremities are intact. No cyanosis clubbing or edema. Skin is without rash or lesion. Neurologic examination is brief but nonfocal. - Labs CBC & Chem 7: 08/02/22 07:23 08/02/22 07:23 Labs: Abnormal Lab Results - Last 24 Hours (Table) 08/02/22 08/02/22 08/02/22 Range/Units 07:23 07:23 07:23 Plt Count 103 L (150-450) k/uL PT 13.3 H (9.0-12.0) sec INR 1.3 H (<1.2) Chloride 111 H (98-107) mmol/L BUN 44 H (9-20) mg/dL Creatinine 1.74 H (0.66-1.25) mg/dL Assessment and Plan Assessment: Acute shortness of breath, secondary to acute pulmonary embolism, as well as COPD, and chronic atrial fibrillation. Recent influenza A infection. Chronic renal failure. Chronic metabolic acidosis. History of bladder cancer, with previous cystectomy. Remote history of pulmonary embolism. History of obstructive sleep apnea syndrome. Plan: Plan dated 07/30/2022. The patient continues on bronchodilators. He also continues on prednisone with a burst and taper. Additional recommendations and suggestions are forthcoming. Labs, x-rays, medications are reviewed. We will continue to follow make recommendations along the way. Possible discharge within the next 24-48 hours. Prognosis is guarded. Plan dated 08/02/2022. The patient is currently on appropriate medications including Pulmicort, Omnicef, albuterol sulfate, ipratropium bromide, and prednisone. We will ivana nue to follow and make recommendations along the way. The patient will be discharged home on Lovenox, 100 mg subcu every 12 hours. The patient will also be sent home on warfarin. Time with Patient: Less than 30
[2022-08-02 14:47] VITALS: BP 179/74; RESP 17; TEMP 98
[2022-08-02] MEDS ORDERED: PRAZOSIN 1 MG CAP PO SCH (15:00)
[2022-08-02 16:05] VITALS: PULSE 75
[2022-08-02] MEDS ORDERED: WARFARIN 7.5 MG TAB PO ONE (18:00)
--- NOTE | 2022-08-02 21:41 | P.DS ---
Providers Date of admission: 07/31/22 12:50 Expected date of discharge: 08/02/22 Attending physician: Adebayo Ferro Consults: 07/29/22 15:26 Consult Physician Routine Consulting Provider: Tommy Fuller Consult Reason/Comments: PE Do you want consulting provider notified?: Yes 07/29/22 16:12 Consult Physician Routine Consulting Provider: Micaela Osei Consult Reason/Comments: Abnormal renal function Do you want consulting provider notified?: Yes 07/29/22 16:13 Consult Physician Routine Consulting Provider: Kaden Lei Consult Reason/Comments: A flutter Do you want consulting provider notified?: Yes 07/30/22 14:29 Consult Physician Routine Consulting Provider: Chevy Nicole Consult Reason/Comments: Left hydronephrosis Do you want consulting provider notified?: Yes Primary care physician: Scooter Martinez MD Hospital Course: Chief Complaint: Short of breath This is a pleasant 82-year-old patient who follows with Dr. Scooter Martinez. Chronic stable medical conditions include atrial fibrillation, PE, COPD, obstructive sleep apnea, history of bladder cancer resulting in urostomy in 2001, decreased left kidney function at 50%, chronic tinnitus. Patient presents with progressive increase in shortness of breath for at least 3-4 weeks. Also wheezing. Occasionally coughing. Some dampening of sputum. Decreased appetite. No fever no chills. It's really short-winded on walking about 10-15 steps. No edema. No chest pain. Patient recently few days ago positive for influenza A. Admitted with COPD exacerbation, question about possible PE. Patient is chronically on eliquis. 07/30/2022: Some shortness of breath and wheezing. She better than yesterday. Placed on IV heparin. Continue bronchodilators, IV Solu-Medrol. Eating better. 07/31/2022: Sitting edge of bed. Some shortness of breath. Oral intake -eating 100%. Remains on bronchodilators, Solu-Medrol. 08/01/2022: Breathing better. Oral intake good. On bronchodilators, oral prednisone. He started on Coumadin. Start Lovenox for bridging. This evening.. IV heparin. 08/02/2022: Stable. Discussed with patient. Patient be discharged on Coumadin and Lovenox bridging. Prescription given for check INR in 3 days. Patient follows with cartilage E Dr. Catarino Fuller from pulmonary. Doing much better. Prazosin added for blood pressure. Discussion and discharge planning more than 35 minutes Past medical history to include: Atrial fibrillation, pulmonary embolism, sleep apnea, bladder cancer with surgery with the urostomy in 2001, if kidney function 10-15%, tinnitus Social history: Lives alone. . Smoked about negative for close to 40 years stopped in 22 years ago. Alcohol rarely. Physical examination: VITAL SIGNS: 98, 58, 17, 134/60, 94% room air. GENERAL: Stable breathing better EYES: Pupils equal. Conjunctiva normal. HEENT: External appearance of nose and ears normal, oral cavity grossly normal. NECK: JVD not raised; masses not palpable. HEART: Irregular heart sounds; no edema. LUNGS:[ Respiratory rate normal diminished breath sounds ABDOMEN: Soft, nontender, liver spleen not palpable, no masses palpable. PSYCH: [Alert and oriented x3; mood and affect tired MUSCULOSKELETAL:No Clubbing/cyanosis;muscles-grossly intact, OA , INVESTIGATIONS, reviewed in the clinical context: 08/02/2022: White count 9.9 hemoglobin 15 potassium 4.744 creatinine 1.74 08/01/2022: White count 9.1 hemoglobin 14.9 potassium 5.1 BUN 52 creatinine 1.88 2-D echocardiogram: EF 55%. Lower extremity Doppler: Negative for DVT bilaterally CT chest without contrast: Mild to moderate chronic changes with moderate bilateral lower lobe bronchiectasis and a few scattered upper lobe interstitial densities UA: Protein 2+ leukoesterase WBC few bacteria 07/30/2022: Potassium 4.4 BUN 52 creatinine 2.07 Renal ultrasound: Right kidney very lobulated contour. Left kidney: Possible severe hydronephrosis with effaced renal parenchyma. WBC 12.7 hemoglobin 17.8 platelets 123 sodium 139 potassium 4.7 bicarb 19 BUN 58 creatinine 2.36 Troponin I 0.048 proBNP 700 EKG tracing personally reviewed by me-atrial flutter, rate 84, right bundle- branch block pattern VQ scan: Intermediate probability for PE. Assessment and plan: -Acute COPD exacerbation in a previous smoker with acute bronchitis: Better Discharge in Symbicort 160/4.5 one puff twice a day. Albuterol when necessary. Omnicef for 2 days -Acute PE. IV heparin-changed to Lovenox. Coumadin restarted.. Follow with pulmonary. Discharged on Coumadin and bridging Lovenox -Chronic kidney disease. 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 Seen by Dr. herrera from urology. -Metabolic acidosis from renal function Sodium bicarbonate -Possible atrial flutter fibrillation. Coumadin -IV heparin monitoring Follow PTT -Coumadin monitoring Disposition: Home Plan - Discharge Summary Discharge Rx Participant: No New Discharge Prescriptions: New Albuterol Sulfate [Albuterol Sulfate Hfa] 1 puff PO Q4-6H #8.5 gm Chlorthalidone [Hygroton] 25 mg PO DAILY #30 tab Enoxaparin [Lovenox] 100 mg SQ Q12HR #14 each Prazosin [Minipress] 2 mg PO TID #180 cap amLODIPine [Norvasc] 5 mg PO BID #60 tab Sodium Bicarbonate Tab 650 mg PO DAILY #30 tab Warfarin [Coumadin] 5 mg PO HS #30 tab Cefdinir [Omnicef] 300 mg PO BID #4 cap Budesonide/Formoterol Fumarate [Symbicort 160-4.5 Mcg Inhaler] 1 puff INHALATION BID #10.2 gm Continue Benzonatate [Tessalon Perle] 200 mg PO TID PRN PRN Reason: Cough Sennosides [Senokot] 8.6 mg PO DAILY PRN PRN Reason: Constipation Discontinued methylPREDNISolone [Medrol Dose Pack] See Taper PO DIRECTED Discharge Medication List Benzonatate [Tessalon Perle] 200 mg PO TID PRN 07/29/22 [History] Sennosides [Senokot] 8.6 mg PO DAILY PRN 07/29/22 [History] Albuterol Sulfate [Albuterol Sulfate Hfa] 1 puff PO Q4-6H #8.5 gm 08/02/22 [Rx] Budesonide/Formoterol Fumarate [Symbicort 160-4.5 Mcg Inhaler] 1 puff INHALATION BID #10.2 gm 08/02/22 [Rx] Cefdinir [Omnicef] 300 mg PO BID #4 cap 08/02/22 [Rx] Chlorthalidone [Hygroton] 25 mg PO DAILY #30 tab 08/02/22 [Rx] Enoxaparin [Lovenox] 100 mg SQ Q12HR #14 each 08/02/22 [Rx] Prazosin [Minipress] 2 mg PO TID #180 cap 08/02/22 [Rx] Sodium Bicarbonate Tab 650 mg PO DAILY #30 tab 08/02/22 [Rx] Warfarin [Coumadin] 5 mg PO HS #30 tab 08/02/22 [Rx] amLODIPine [Norvasc] 5 mg PO BID #60 tab 08/02/22 [Rx] Follow up Appointment(s)/Referral(s): Tommy Fuller MD [STAFF PHYSICIAN] - 08/11/22 1:00 pm Catarino Pagan MD [STAFF PHYSICIAN] - 08/09/22 1:15 pm Scooter Martinez MD [Primary Care Provider] - 1-2 days (office will call you to schedule appointment. ) [facility] Visiting Nurse, [NON-STAFF] - Patient Instructions/Handouts: Warfarin (By mouth), Pulmonary Embolism (DC) Activity/Diet/Wound Care/Special Instructions: We started Coumadin, more affordable blood thinner medication INR - 08/05/2022; results to dr Clark ; to follow inr Discharge Disposition: HOME WITH HOME HEALTH SERVICES
--- NOTE | 2022-08-08 08:41 | CDI ---
Documentation Clarification Form Date: 08/08/2022 07:53:00 AM From: Criss Powers Admit Date: 07/31/2022 12:50:00 PM Patient Name: Arpan Solis Visit Number: [id number] Discharge Date: 08/02/2022 04:38:00 PM ATTENTION: The Clinical Documentation Specialists (CDI) and [facility] Coding Staff appreciate your assistance in clarifying documentation. Please respond to the clarification below the line at the bottom and electronically sign. The CDI & [facility] Coding staff will review the response and follow-up if needed. Please note: Queries are made part of the Legal Health Record. If you have any questions, please contact the author of this message via ITS. Dr. Adebayo Ferro Conflicting documentation has been found in the medical record. Per PN's 07/30 and 07/31 No pneumonia and no congestive heart failure is documented. Per 07/30 consult and 07/31 PN Pneumonia possibly viral is documented. As attending physician, please provide clarification. Pneumonia possibly viral PN 07/30 and 07/31 No pneumonia PN 07/30 and 07/31 History/Risk Factors: patient with positive Influenza A and COPD exacerbation Clinical Indicators: CXR concerning for pneumonia CT chest Acute pneumonia is not excluded Treatment: Steroids, Duoneb Please clarify which diagnosis is most appropriate: [ ] Viral pneumonia [ ] Viral pneumonia ruled out [ ] Other (please specify) [ ] Unable to determine Viral pneumonia ruled out MTDD
== END 2022-08-02 16:38 | disposition home health service (06) | DRG 190 ==
LOC: EC 20:53 → 6NMEDSUR 07-29 00:02 → 3SCARD 07-29 00:29 → OBSVTOIN 07-31 12:50
PROVIDERS: ADMIT Hospitalist; ATTEND Hospitalist
DX: J44.0 Chronic obstructive pulmonary disease with (acute) lower respiratory infection (principal); I26.99 Other pulmonary embolism without acute cor pulmonale; E87.22 Chronic metabolic acidosis; I13.0 Hypertensive heart and chronic kidney disease with heart failure and stage 1 through stage 4 chronic kidney disease, or unspecified chronic kidney disease; I48.3 Typical atrial flutter; N13.30 Unspecified hydronephrosis; N17.9 Acute kidney failure, unspecified; J44.1 Chronic obstructive pulmonary disease with (acute) exacerbation; J20.8 Acute bronchitis due to other specified organisms; J11.1 Influenza due to unidentified influenza virus with other respiratory manifestations; E16.2 Hypoglycemia, unspecified; G47.33 Obstructive sleep apnea (adult) (pediatric); I48.0 Paroxysmal atrial fibrillation; R77.8 Other specified abnormalities of plasma proteins; I50.9 Heart failure, unspecified; N18.9 Chronic kidney disease, unspecified; R09.02 Hypoxemia; T38.0X5A Adverse effect of glucocorticoids and synthetic analogues, initial encounter; Z66 Do not resuscitate; Z79.01 Long term (current) use of anticoagulants; Z90.6 Acquired absence of other parts of urinary tract; Z79.82 Long term (current) use of aspirin; Z85.51 Personal history of malignant neoplasm of bladder; Z86.711 Personal history of pulmonary embolism; Z86.010 Personal history of colon polyps; J20.9 Acute bronchitis, unspecified; Z87.891 Personal history of nicotine dependence; Z90.79 Acquired absence of other genital organ(s); Z93.6 Other artificial openings of urinary tract status; Z28.21 Immunization not carried out because of patient refusal; Z60.2 Problems related to living alone
CPT/HCPCS: 36415; 71045; 71046; 71250; 76770; 78580; 80048; 80053; 81001; 83036; 83735; 83880; 84145; 84484; 85025; 85027; 85379; 85610; 85730; 93005; 93306; 93970; 94640; 94760; 96361; 96372; 96374; 96375; 99291

== ENCOUNTER → 2023-11-13 | Outpatient (CLI) | payer MEDICARE, OTHER ==
--- NOTE | 2023-11-13 17:13 | US ---
EXAMINATION TYPE: US kidneys/renal and bladder DATE OF EXAM: 11/13/2023 COMPARISON: US CLINICAL INDICATION: Male, 83 years old with history of N18.9 CHRONIC KIDNEY DISEASE, UNSPECIFIED; CK D EXAM MEASUREMENTS: Right Kidney: 13.0 x 6.2 x 5.1 cm Left Kidney: 12.8 x 5.9 x 5.6 cm Right Kidney: Lobulated contour, no evidence of hydro, perinephric fluid lower pole Left Kidney: [place], no normal renal tissue visualized Bladder: Surgically removed in 2009 Similar findings as visualized on prior IMPRESSION: 1. Similar severe dilation of the left collecting system 2. Lobulated contour to the right kidney. No evidence for right hydronephrosis.
== END | disposition home or self-care (01) ==
LOC: RADUSWWP 15:20
PROVIDERS: ATTEND Internal Medicine
DX: Q63.1 Lobulated, fused and horseshoe kidney (principal); N28.89 Other specified disorders of kidney and ureter; N18.9 Chronic kidney disease, unspecified; Z90.6 Acquired absence of other parts of urinary tract
CPT/HCPCS: 76770

== ENCOUNTER 2024-06-25 06:37 | Day surgery (SDC) | payer MEDICARE, OTHER ==
[~2024-06-25 06:37] MED LIST: LIDOCAINE 1% (10MG/ML) FOR IV START INTRADERMA PRN
[2024-06-25 07:03] VITALS: TEMP 98.2
[2024-06-25] MEDS: LACTATED RINGERS 1,000 ML IV SCH (07:11)
[2024-06-25] MEDS: IV FLUID CONTINUATION 1,000 ML IV ONE (07:11)
[2024-06-25] MEDS ORDERED: LIDOCAINE 2% (PF) 20 MG/ML 5 ML VIAL ONE (07:41)
[2024-06-25] MEDS ORDERED: PROPOFOL 10 MG/ML 20 ML VIAL IV ONE (07:41)
--- NOTE | 2024-06-25 08:13 | P.PCN ---
Date of Procedure: 06/25/24 Procedure(s) Performed: Brief history: Patient is a pleasant 84-year-old pleasant white male scheduled for an elective upper endoscopy as well as colonoscopy as a part of evaluation of intermittent heartburn and an episode of rectal bleeding that happened a month ago. Procedure performed: Esophagogastroduodenoscopy with biopsy Colonoscopy Preoperative diagnosis: GERD/rectal bleeding Anesthesia: MAC Procedure: After informed consent was obtained from the patient was brought into the endoscopy unit and IV sedation was administered by anesthesia under continuous monitoring. Initially upper endoscopy was done. The Olympus GF 160 video endoscope was inserted inserted into the mouth and esophagus intubated without any difficulty and was gradually advanced into the stomach and duodenum and carefully examined. The bulb and second part of the duodenum appeared normal. The scope was then withdrawn into the stomach adequately insufflated with air and upon careful examination the antrum had mild gastritis and biopsies were done from this area. Mucosa of the body, cardia and fundus appeared normal. The scope was then withdrawn into the esophagus. The GE junction was located at 40 cm to the incisors. It appeared regular with 1 superficial erosion consistent with LA grade B reflux esophagitis. Rest of the esophagus appeared normal. Patient tolerated the procedure well. At this time the patient continued to remain sedation. Initial digital rectal examination was normal. Olympus CF 160 video colonoscope was then inserted into the rectum and gradually advanced to the cecum without any difficulty. Careful examination was performed as the scope was gradually being withdrawn. The prep was excellent. The cecum normal. Descending colon there was a 2 cm broad-based polyp removed by snare polypectomy. In the transverse colon there was a micrometer polyp removed by snare polypectomy. In the descending colon there was a 5 mm polyp removed by snare polypectomy. Rest of the sigmoid colon appeared normal. In the distal rectum 2 cm proximal to the dentate line there was a 3 cm ulcerated mass identified and multiple biopsies were done from this area. Retroflexion was performed in the rectum and no lesions were noted. Patient tolerated the procedure well. Impression: 1. Upper endoscopy revealed mild antral gastritis and provisional erosion in the distal esophagus consistent with LA grade B reflux esophagitis 2. Colonoscopy revealed: 3 cm ulcerated distal rectal mass 2 cm proximal to the dentate line s/p multiple biopsies 2 cm broad-based ascending colon polyp status post snare polypectomy 1 cm transverse colon polyp status post polypectomy 5 mm descending colon polyp status post polypectomy Recommendations: Findings of this examination were discussed with the patient as well as his family. He was advised to follow with the biopsy results. Scheduled for CT of the abdomen pelvis. He will be seen in the office in 1 week.
[2024-06-25 08:51] VITALS: BP 127/70; PULSE 49; RESP 16
== END 2024-06-25 09:27 | disposition home or self-care (01) ==
LOC: ORWHC2ENDO 06:37
PROVIDERS: ATTEND Internal Medicine Gastroenterology
DX: C20 Malignant neoplasm of rectum (principal); D12.2 Benign neoplasm of ascending colon; D12.4 Benign neoplasm of descending colon; D12.3 Benign neoplasm of transverse colon; K62.5 Hemorrhage of anus and rectum; K21.9 Gastro-esophageal reflux disease without esophagitis; K29.50 Unspecified chronic gastritis without bleeding; K22.10 Ulcer of esophagus without bleeding; I48.91 Unspecified atrial fibrillation; E78.5 Hyperlipidemia, unspecified; G47.33 Obstructive sleep apnea (adult) (pediatric); N28.9 Disorder of kidney and ureter, unspecified; F17.220 Nicotine dependence, chewing tobacco, uncomplicated; Z85.51 Personal history of malignant neoplasm of bladder; Z79.01 Long term (current) use of anticoagulants; Z79.899 Other long term (current) drug therapy; Z86.711 Personal history of pulmonary embolism
CPT/HCPCS: 45380; 88305; 88342; 88300; 88341; 45385; 43239; J2704; J2003

== ENCOUNTER → 2024-07-18 | Outpatient (CLI) | payer MEDICARE, OTHER | END | disposition home or self-care (01) | LOC: RADPETMAIN 14:02 | PROVIDERS: ATTEND Internal Medicine Hematology & Oncology | DX: Z53.9 Procedure and treatment not carried out, unspecified reason (principal) ==

== ENCOUNTER → 2024-07-19 | Outpatient (CLI) | payer MEDICARE, OTHER ==
--- NOTE | 2024-07-19 15:26 | PE ---
EXAMINATION TYPE: PET CT fusion skull to thigh DATE OF EXAM: 07/19/2024 CLINICAL INDICATION:Male, 84 years old with history of C20 RECTAL CANCER; TECHNIQUE: Following the intravenous administration of 11.97 mCi of F-18 FDG, whole body images are performed from the skull base to the midthigh. Images are reviewed on the computer in the coronal, axial, and sagittal planes. Reconstructed rotating images are created on independent workstation and reviewed on the computer. A non-contrast CT is performed in conjunction with the PET scan. Glucose level 93 mg/dL CT DLP: 885.13 mGycm, Automated exposure control for dose reduction was used. COMPARISON: CT 07/29/2022, PET/CT None, MRI: None FINDINGS: Mediastinal SUV mean is 2.5. Hepatic parenchyma SUV mean is 2.6. SKULL BASE AND NECK: No suspicious radiotracer activity. CHEST, MEDIASTINUM, AND HILAR REGION: No suspicious radiotracer activity. ABDOMEN AND PELVIS: Eccentric wall thickening of the posterior left lateral rectum measuring grossly 3.5 x 1.5 cm with fo dre FDG activity. This consists a maximum SUV of 26.4. MUSCULOSKELETAL STRUCTURES: No suspicious radiotracer activity. OTHER CT: Bilateral aphakia. Moderate paranasal sinus mucosal disease with high density within the ri ght maxillary sinus. Left chest wall single lead cardiac pacemaking device with lead terminating in t he right ventricle. Mild atherosclerotic calcification of aorta and branches. 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 Gallbladder surgically absent. Severe left hydroureteronephrosi s with cortical thinning suggesting long-standing process. No obstructing calculus identified. There is focal narrowing with poor visualization of the left distal ureter. Cannot follow the distal left u reter to the ileal conduit. Postsurgical changes with right lower quadrant ileal conduit. Postsurgica l changes from prostatectomy and cystectomy. IMPRESSION: 1. Rectal mass with radiotracer activity consistent with known rectal cancer. 2. No additional sites of radiotracer activity to suggest metastatic disease. 3. Postsurgical changes from prostatectomy and cystectomy with right lower quadrant ileal conduit. T here is severe left hydroureteronephrosis with cortical thinning suggesting long-standing process. Th e distal left ureter is poorly visualized to the ileal conduit. There may be a stricture versus other etiologies. [facility], , 07/19/2024 3:24 PM
== END | disposition home or self-care (01) ==
LOC: RADPETMAIN 10:31
PROVIDERS: ATTEND Internal Medicine Hematology & Oncology
DX: C20 Malignant neoplasm of rectum (principal); N13.39 Other hydronephrosis; I70.0 Atherosclerosis of aorta; I71.43 Infrarenal abdominal aortic aneurysm, without rupture; H27.03 Aphakia, bilateral
CPT/HCPCS: 78815; A9552

== ENCOUNTER → 2024-08-14 | Outpatient (CLI) | payer MEDICARE, OTHER ==
--- NOTE | 2024-08-14 12:38 | XR ---
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 FINDINGS: Lungs/Pleura: There is no evidence of pleural effusion, focal consolidation, or pneumothorax. Pulmonary vascularity: Unremarkable. Heart/mediastinum: Cardiomediastinal silhouette is unremarkable. Single-lead cardiac conduction devic e overlying the left hemithorax with lead projecting over the right ventricle. Musculoskeletal: No acute osseous pathology. IMPRESSION: No acute cardiopulmonary disease/process. [facility], , 08/14/2024 12:36 PM
== END | disposition home or self-care (01) ==
LOC: RADXRMAIN 12:03
PROVIDERS: ATTEND Internal Medicine Hematology & Oncology
DX: C20 Malignant neoplasm of rectum (principal); C67.9 Malignant neoplasm of bladder, unspecified; I26.99 Other pulmonary embolism without acute cor pulmonale; Z71.3 Dietary counseling and surveillance
CPT/HCPCS: 71046

== ENCOUNTER → 2024-11-28 | Outpatient (CLI) | payer MEDICARE, OTHER ==
--- NOTE | 2024-12-01 19:07 | PE ---
EXAMINATION TYPE: PET CT fusion skull to thigh DATE OF EXAM: 11/28/2024 COMPARISON: 10/04/2024 Prior PET/CT: 07/19/2024 CLINICAL INDICATION: Male, 84 years old with history of C20 colorectal ca, TECHNIQUE: Following the intravenous administration of 13.18 mCi of F-18 FDG, whole body images are performed PET CT fusion skull to thigh. Images are reviewed on the computer in the coronal, axial, a nd sagittal planes. Reconstructed rotating images are created on independent workstation and reviewe d on the computer. A localization and attenuation correction CT is performed in conjunction with e PET scan. DLP: 825.26 mGycm SCAN: Subsequent Blood glucose: 150 mg/dL Average Mediastinum SUV: 2.47 Average Liver SUV: 3.69 FINDINGS: NECK: No abnormal uptake THORAX: No abnormal uptake ABDOMEN: No abnormal uptake PELVIS: Intracolonic focal uptake within the posterior lateral rectosigmoid junction, image 22, has a n SUV of 10.59. This appeared larger previously with more intense uptake of 21 SUV. Direct visualizat ion is recommended. OSSEOUS STRUCTURES: No abnormal uptake LOCALIZATION CT: Fluid collections are within the atrophic left kidney region may be residual hydrone phrosis. COMPARISON: Rectal uptake was present previously. This area appears diminished in size and intensity. IMPRESSION: 1. Diminished size and SUV value of 8 hyperintense area within the left rectosigmoid region compatibl e with the patient's reported neoplasm. Continued monitoring recommended. 2. No new or increasing areas of uptake to suggest metastasis. [facility], , 12/01/2024 7:05 PM
== END | disposition home or self-care (01) ==
LOC: RADPETMAIN 15:11
PROVIDERS: ATTEND Internal Medicine Hematology & Oncology
DX: C20 Malignant neoplasm of rectum (principal)
CPT/HCPCS: 82533; 78815; A9552

== ENCOUNTER 2024-12-16 11:15 | Emergency (ER) | payer MEDICARE, OTHER ==
[2024-12-16] MEDS: SODIUM CHLORIDE 0.9% 1,000 ML IV ONE (12:26)
[2024-12-16 12:29] VITALS: RESP 18
[2024-12-16 12:40] LABS: Basophils # (A) 0.07 10*3/uL (0.00-0.10); Eosinophils # (A) 0.23 10*3/uL (0.04-0.35); Eosinophils % (A) 3.3 %; HCT 46.3 % (39.6-50.0); HGB 15.2 g/dL (13.0-17.0); Lymphocytes # (A) 1.46 10*3/uL (0.90-5.00); Lymphocytes % (A) 21.1 %; MCH 30.1 pg (27.0-32.0); MCHC 32.8 g/dL (32.0-37.0); MCV 91.7 fL (80.0-97.0); Mean Platelet Volume 9.3 fL (9.5-12.2); Monocytes # (A) 0.69 10*3/uL (0.20-1.00); Neutrophils # (A) 4.43 10*3/uL (1.80-7.70); Neutrophils % (A) 63.9 %; Platelet Count 216 10*3/uL (140-440); RBC 5.05 10*6/uL (4.40-5.60); WBC 6.93 10*3/uL (4.50-10.00)
[2024-12-16 12:50] LABS: ALT 16 U/L (4-49); AST 24 U/L (17-59); African American GFR (CKD) 41 (>60 ml/min/1.73 sqM); Albumin 3.3 g/dL (3.5-5.0); Alkaline Phosphatase 64 U/L (38-126); Anion Gap 6 mmol/L; Appearance,Urine Clear (Clear); Bacteria,Urine Rare /hpf; Bilirubin,Urine Negative (Negative); Blood Urea Nitrogen 23 mg/dL (9-20); Blood,Urine Negative (Negative); Calcium 8.7 mg/dL (8.4-10.2); Carbon Dioxide 29 mmol/L (22-30); Chloride 101 mmol/L (98-107); Color,Urine Light Yellow; Glucose 143 mg/dL (74-99); Glucose,Urine (UA) Negative (Negative); Ketones,Urine Negative (Negative); Leukocyte Esterase,Urine Moderate (Negative); Nitrite,Urine Positive (Negative); Non-African American GFR(CKD) 35 (>60 ml/min/1.73 sqM); PH, Urine 7.5 (5.0-8.0); Protein,Urine Negative (Negative); RBC,Urine 4 /hpf (0-5); Sodium 136 mmol/L (137-145); Specific Gravity,Urine 1.012 (1.001-1.035); Squamous Epithelial Cell,Urine <1 /hpf (0-4); Total Bilirubin 1.3 mg/dL (0.2-1.3); Total Protein 5.8 g/dL (6.3-8.2); Urobilinogen,Urine <2.0 mg/dL (<2.0); WBC,Urine 32 /hpf (0-5)
[2024-12-16 13:34] VITALS: BP 131/75; PULSE 45; TEMP 98.1
[2024-12-16] MEDS: cefTRIAXone IN SWFI 1,000 MG/10 ML SYRINGE IVP STA ×2 (13:35)
--- NOTE | 2024-12-16 13:55 | ED ---
General Adult HPI - General Chief complaint: Recheck/Abnormal Lab/Rx Stated complaint: ABN Labs Time Seen by Provider: 12/16/24 11:52 Source: patient, RN notes reviewed Mode of arrival: ambulatory Limitations: no limitations - History of Present Illness Initial comments: 84-year-old male presents emergency department with caregiver for evaluation of possible UTI. Patient was treated for UTI couple weeks ago called PCP as patient had more fatigue and concern for another UTI. They advised at that time to come to the emergency department. Patient reports no fever no chest pain patient does have colorectal cancer but patient did not tolerate immunotherapy not a candidate for surgery or chemotherapy. Patient denies any chest pain shortness of breath no abdominal complaints. - Related Data Home Medications Medication Instructions Recorded Confirmed Sennosides [Senokot] 8.6 mg PO DAILY PRN 07/29/22 06/25/24 Chlorthalidone [Hygroton] 25 mg PO DAILY 06/21/24 06/21/24 Warfarin [Coumadin] 2.5 mg PO MO 06/21/24 06/25/24 Rosuvastatin Calcium [Crestor] 5 mg PO ONCE 06/25/24 06/25/24 Previous Rx's Medication Instructions Recorded Sodium Bicarbonate Tab 650 mg PO DAILY #30 tab 08/02/22 Warfarin [Coumadin] 5 mg PO HS #30 tab 08/02/22 amLODIPine [Norvasc] 5 mg PO BID #60 tab 08/02/22 Ciprofloxacin HCl [Cipro] 500 mg PO Q12HR #14 tablet 12/16/24 Allergies Allergy/AdvReac Type Severity Reaction Status Date / Time minocycline Allergy Swelling/fa Verified 12/16/24 11:20 ce/throat Review of Systems ROS Statement: Those systems with pertinent positive or pertinent negative responses have been documented in the HPI. ROS Other: All systems not noted in ROS Statement are negative. Past Medical History Past Medical History: Atrial Fibrillation, Cancer, COPD, Hyperlipidemia, Pulmonary Embolus (PE), Renal Disease, Sleep Apnea/CPAP/BIPAP Additional Past Medical History / Comment(s): HX OF POLYP, HX OF BLADDER CA. 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%, HX OF TINNITUS, no cpap used History of Any Multi-Drug Resistant Organisms: None Reported Past Surgical History: Cholecystectomy, Orthopedic Surgery, Pacemaker Additional Past Surgical History / Comment(s): UROSTOMY, RT KNEE 2 ARTHROSCOPIES, 1 OPEN SX, LT KNEE ARTHROSCOPY X1 "retinal problem " having it checked out soon Past Anesthesia/Blood Transfusion Reactions: No Reported Reaction Type of Cardiac Device: Permanent Pacemaker Device Placement Date:: unk Past Psychological History: No Psychological Hx Reported Smoking Status: Former smoker Past Alcohol Use History: None Reported Past Drug Use History: None Reported - Past Family History Father Family Medical History: Cancer Additional Family Medical History / Comment(s): PANCREATIC General Exam Limitations: no limitations General appearance: alert, in no apparent distress Head exam: Present: atraumatic, normocephalic, normal inspection Eye exam: Present: normal appearance, PERRL, EOMI. Absent: scleral icterus, conjunctival injection, periorbital swelling Respiratory exam: Present: normal lung sounds bilaterally. Absent: respiratory distress, wheezes, rales, rhonchi, stridor Cardiovascular Exam: Present: regular rate, normal rhythm, normal heart sounds. Absent: systolic murmur, diastolic murmur, rubs, gallop, clicks GI/Abdominal exam: Present: soft, normal bowel sounds. Absent: distended, tenderness, guarding, rebound, rigid Course Vital Signs 12/16/24 12/16/24 12/16/24 11:17 12:28 13:33 Temperature 97.9 F 98.1 F Pulse Rate 66 58 L 45 L Respiratory 22 18 18 Rate Blood Pressure 120/71 126/73 131/75 O2 Sat by Pulse 95 94 L 94 L Oximetry Medical Decision Making - Medical Decision Making Was pt. sent in by a medical professional or institution (, PA, SIMULATION DEVELOPER, urgent care, hospital, or fpc...) When possible be specific @ -No Did you speak to anyone other than the patient for history (EMS, parent, family, police, friend...)? What history was obtained from this source @ -No Did you review nursing and triage notes (agree or disagree)? Why? @ -I reviewed and agree with nursing and triage notes Were old charts reviewed (outside hosp., previous admission, EMS record, old EK G, old radiological studies, urgent care reports/EKG's, fpc records)? Report findings @ -No old charts were reviewed Differential Diagnosis (chest pain, altered mental status, abdominal pain women, abdominal pain men, vaginal bleeding, weakness, fever, dyspnea, syncope, headache, dizziness, GI bleed, back pain, seizure, CVA, palpatations, mental health, musculoskeletal)? @ -Differential Abdominal Pain Men: Appendicitis, cholecystitis, diverticulosis, ischemic bowel, pancreatitis, hepa titis, UTI, gastroenteritis, AAA, incarcerated hernia, bowel obstruction, constipation, inflammatory bowel, hepatitis, peptic ulcer disease, splenic infarction, perforated viscus, testicular torsion, this is not meant to be an all-inclusive list Differential Weakness: Hypoglycemia, shock, sepsis, hyponatremia, anemia, infection, NH, ETOH, adverse medicine reaction, overdose, stroke, this is not meant to be an all-inclusive list. EKG interpreted by me (3pts min.). @ -[None X-rays interpreted by me (1pt min.). @ -None done CT interpreted by me (1pt min.). @ -None done U/S interpreted by me (1pt. min.). @ -None done What testing was considered but not performed or refused? (CT, X-rays, U/S, la bs)? Why? @ -None What meds were considered but not given or refused? Why? @ -None Did you discuss the management of the patient with other professionals (professionals i.e. , PA, SIMULATION DEVELOPER, lab, RT, psych nurse, home health care social worker, halal meat packer, teacher, dispatch officer, leather case finisher)? Give summary @ -No Was smoking cessation discussed for >3mins.? @ -No Was critical care preformed (if so, how long)? @ -No Were there social determinants of health that impacted care today? How? (Homelessness, low income, unemployed, alcoholism, drug addiction, transportation, low edu. Level, literacy, decrease access to med. care, shelter, rehab)? @ -No Was there de-escalation of care discussed even if they declined (Discuss DNR or withdrawal of care, Hospice)? DNR status @ -No What co-morbidities impacted this encounter? (DM, HTN, Smoking, COPD, CAD, Cancer, CVA, ARF, Chemo, Hep., AIDS, mental health diagnosis, sleep apnea, morbid obesity)? @ -None Was patient admitted / discharged? Hospital course, mention meds given and route, prescriptions, significant lab abnormalities, going to OR and other pertinent info. @ -Discharge patient has evidence of UTI nitrate positive urine. Patient was given 2 g Rocephin will be discharged on ciprofloxacin as he is on a recent course of Keflex. Patient will have urine culture blood culture drawn. We discussed inpatient versus outpatient patient feels comfortable outpatient t reatment return parens discussed. Undiagnosed new problem with uncertain prognosis? @ -No Drug Therapy requiring intensive monitoring for toxicity (Heparin, Nitro, Insulin, Cardizem)? @ -No Were any procedures done? @ -No Diagnosis/symptom? @ -UTI Acute, or Chronic, or Acute on Chronic? @ -Acute Uncomplicated (without systemic symptoms) or Complicated (systemic symptoms)? @ -complicated Side effects of treatment? @ -No Exacerbation, Progression, or Severe Exacerbation? @ -No Poses a threat to life or bodily function? How? (Chest pain, USA, [place], pneumonia, PE, COPD, DKA, ARF, appy, cholecystitis, CVA, Diverticulitis, Homicidal, Suicidal, threat to staff... and all critical care pts) @ -No - Lab Data Result diagrams: 12/16/24 12:25 12/16/24 12:25 Lab Results 12/16/24 12/16/24 12/16/24 Range/Units 12:25 12:25 12:25 WBC 6.93 (4.50-10.00) 10*3/uL RBC 5.05 (4.40-5.60) 10*6/uL Hgb 15.2 (13.0-17.0) g/dL Hct 46.3 (39.6-50.0) % MCV 91.7 (80.0-97.0) fL MCH 30.1 (27.0-32.0) pg MCHC 32.8 (32.0-37.0) g/dL Plt Count 216 (140-440) 10*3/uL MPV 9.3 L (9.5-12.2) fL Immature Gran % (Auto) 0.7 % Neutrophils % 63.9 % Lymphocytes % 21.1 % Monocytes % 10.0 % Eosinophils % 3.3 % Basophils % 1.0 % Immature Gran # 0.05 H (0.00-0.04) 10*3/uL Neutrophils # 4.43 (1.80-7.70) 10*3/uL Lymphocytes # 1.46 (0.90-5.00) 10*3/uL Monocytes # 0.69 (0.20-1.00) 10*3/uL Eosinophils # 0.23 (0.04-0.35) 10*3/uL Basophils # 0.07 (0.00-0.10) 10*3/uL Sodium 136 L (137-145) mmol/L Potassium 4.0 (3.5-5.1) mmol/L Chloride 101 (98-107) mmol/L Carbon Dioxide 29 (22-30) mmol/L Anion Gap 6 mmol/L BUN 23 H (9-20) mg/dL Creatinine 1.75 H (0.66-1.25) mg/dL Est GFR (CKD-EPI)AfAm 41 (>60 ml/min/1.73 sqM) Est GFR (CKD-EPI)NonAf 35 (>60 ml/min/1.73 sqM) Glucose 143 H (74-99) mg/dL Plasma Lactic Acid Ricardo (0.7-2.0) mmol/L Calcium 8.7 (8.4-10.2) mg/dL Total Bilirubin 1.3 (0.2-1.3) mg/dL AST 24 (17-59) U/L ALT 16 (4-49) U/L Alkaline Phosphatase 64 (38-126) U/L Total Protein 5.8 L (6.3-8.2) g/dL Albumin 3.3 L (3.5-5.0) g/dL Urine Color Light Yellow Urine Appearance Clear (Clear) Urine pH 7.5 (5.0-8.0) Ur Specific [place] 1.012 (1.001-1.035) Urine Protein Negative (Negative) Urine Glucose (UA) Negative (Negative) Urine Ketones Negative (Negative) Urine Blood Negative (Negative) Urine Nitrite Positive (Negative) Urine Bilirubin Negative (Negative) Urine Urobilinogen <2.0 (<2.0) mg/dL Ur Leukocyte Esterase Moderate H (Negative) Urine RBC 4 (0-5) /hpf Urine WBC 32 H (0-5) /hpf Ur Squamous Epith Cells <1 (0-4) /hpf Urine Bacteria Rare H (None) /hpf 12/16/24 Range/Units 12:25 WBC (4.50-10.00) 10*3/uL RBC (4.40-5.60) 10*6/uL Hgb (13.0-17.0) g/dL Hct (39.6-50.0) % MCV (80.0-97.0) fL MCH (27.0-32.0) pg MCHC (32.0-37.0) g/dL Plt Count (140-440) 10*3/uL MPV (9.5-12.2) fL Immature Gran % (Auto) % Neutrophils % % Lymphocytes % % Monocytes % % Eosinophils % % Basophils % % Immature Gran # (0.00-0.04) 10*3/uL Neutrophils # (1.80-7.70) 10*3/uL Lymphocytes # (0.90-5.00) 10*3/uL Monocytes # (0.20-1.00) 10*3/uL Eosinophils # (0.04-0.35) 10*3/uL Basophils # (0.00-0.10) 10*3/uL Sodium (137-145) mmol/L Potassium (3.5-5.1) mmol/L Chloride (98-107) mmol/L Carbon Dioxide (22-30) mmol/L Anion Gap mmol/L BUN (9-20) mg/dL Creatinine (0.66-1.25) mg/dL Est GFR (CKD-EPI)AfAm (>60 ml/min/1.73 sqM) Est GFR (CKD-EPI)NonAf (>60 ml/min/1.73 sqM) Glucose (74-99) mg/dL Plasma Lactic Acid Ricardo 1.4 (0.7-2.0) mmol/L Calcium (8.4-10.2) mg/dL Total Bilirubin (0.2-1.3) mg/dL AST (17-59) U/L ALT (4-49) U/L Alkaline Phosphatase (38-126) U/L Total Protein (6.3-8.2) g/dL Albumin (3.5-5.0) g/dL Urine Color Urine Appearance (Clear) Urine pH (5.0-8.0) Ur Specific [place] (1.001-1.035) Urine Protein (Negative) Urine Glucose (UA) (Negative) Urine Ketones (Negative) Urine Blood (Negative) Urine Nitrite (Negative) Urine Bilirubin (Negative) Urine Urobilinogen (<2.0) mg/dL Ur Leukocyte Esterase (Negative) Urine RBC (0-5) /hpf Urine WBC (0-5) /hpf Ur Squamous Epith Cells (0-4) /hpf Urine Bacteria (None) /hpf Disposition Clinical Impression: UTI (urinary tract infection) Disposition: HOME SELF-CARE Condition: Stable Instructions (If sedation given, give patient instructions): Urinary Tract Infection in Men (ED) Additional Instructions: Please return to the Emergency Department if symptoms worsen or any other concerns. Prescriptions: Ciprofloxacin HCl [Cipro] 500 mg PO Q12HR #14 tablet Is patient prescribed a controlled substance at d/c from ED?: No Referrals: Ronak Ledesma DO [Primary Care Provider] - 1-2 days Time of Disposition: 13:55
== END 2024-12-16 14:10 | disposition home or self-care (01) ==
LOC: EC 11:15
DX: N39.0 Urinary tract infection, site not specified (principal); Z87.891 Personal history of nicotine dependence; Z88.1 Allergy status to other antibiotic agents
CPT/HCPCS: 36415; 80053; 83605; 85025; 81001; 87040; 87086; 99283; 96374; 96361; J0696

== ENCOUNTER 2024-12-19 12:01 | Emergency (ER) | payer MEDICARE, OTHER ==
--- NOTE | 2024-12-19 13:22 | ED ---
Recheck HPI - General Source: patient Mode of arrival: ambulatory Limitations: no limitations <Kelly Hsieh - Last Filed: 12/19/24 13:33> <JacquelinanaEmre - Last Filed: 12/20/24 20:37> - General Chief Complaint: Recheck/Abnormal Lab/Rx Stated Complaint: ABN Labs Time Seen by Provider: 12/19/24 12:09 - History of Present Illness Initial Comments: 84-year-old male presenting to the ER with caregiver for evaluation of UTI. Past medical history significant for A-fib anticoagulated on Coumadin. Per caregiver, he was started on Keflex, then ciprofloxacin, and then received a call from his primary doctor about needing IV antibiotics. Of note patient has urostomy and solitary kidney. Patient's only complaint was feeling more fatigued. Patient reports he also has colorectal cancer but did not tolerate im munotherapy and is not a candidate for surgery or chemotherapy. Denies fevers, chest pain, shortness of breath, no abdominal complaints. (Kelly Hsieh) - Related Data Home Medications Medication Instructions Recorded Confirmed Sennosides [Senokot] 8.6 mg PO DAILY PRN 07/29/22 06/25/24 Chlorthalidone [Hygroton] 25 mg PO DAILY 06/21/24 06/21/24 Warfarin [Coumadin] 2.5 mg PO MO 06/21/24 06/25/24 Rosuvastatin Calcium [Crestor] 5 mg PO ONCE 06/25/24 06/25/24 Previous Rx's Medication Instructions Recorded Sodium Bicarbonate Tab 650 mg PO DAILY #30 tab 08/02/22 Warfarin [Coumadin] 5 mg PO HS #30 tab 08/02/22 amLODIPine [Norvasc] 5 mg PO BID #60 tab 08/02/22 Ciprofloxacin HCl [Cipro] 500 mg PO Q12HR #14 tablet 12/16/24 Cefdinir [Omnicef] 300 mg PO Q12HR 7 Days #14 capsule 12/19/24 Allergies Allergy/AdvReac Type Severity Reaction Status Date / Time minocycline Allergy Swelling/fa Verified 12/19/24 12:09 ce/throat Review of Systems ROS Other: All systems not noted in ROS Statement are negative. Constitutional: Denies: fever, chills Respiratory: Denies: cough, dyspnea Cardiovascular: Denies: chest pain, palpitations Endocrine: Reports: fatigue Gastrointestinal: Denies: abdominal pain, nausea, vomiting Skin: Denies: rash, lesions Neurological: Denies: headache, weakness <Kelly Hsieh - Last Filed: 12/19/24 13:33> ROS Other: All systems not noted in ROS Statement are negative. <Emre Peace - Last Filed: 12/20/24 20:37> ROS Statement: Those systems with pertinent positive or pertinent negative responses have been documented in the HPI. Past Medical History Past Medical History: Atrial Fibrillation, Cancer, COPD, Hyperlipidemia, Pulmonary Embolus (PE), Renal Disease, Sleep Apnea/CPAP/BIPAP Additional Past Medical History / Comment(s): HX OF POLYP, HX OF BLADDER CA. 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%, HX OF TINNITUS, no cpap used History of Any Multi-Drug Resistant Organisms: None Reported Past Surgical History: Cholecystectomy, Orthopedic Surgery, Pacemaker Additional Past Surgical History / Comment(s): UROSTOMY, RT KNEE 2 ARTHROSCOPIES, 1 OPEN SX, LT KNEE ARTHROSCOPY X1 "retinal problem " having it checked out soon Past Anesthesia/Blood Transfusion Reactions: No Reported Reaction Type of Cardiac Device: Permanent Pacemaker Device Placement Date:: unk Past Psychological History: No Psychological Hx Reported Smoking Status: Former smoker Past Alcohol Use History: None Reported Past Drug Use History: None Reported - Past Family History Father Family Medical History: Cancer Additional Family Medical History / Comment(s): PANCREATIC <Kelly Hsieh - Last Filed: 12/19/24 13:33> General Exam Limitations: no limitations General appearance: alert, in no apparent distress Respiratory exam: Present: other (Mild crackles noted at the lung bases). Absent: respiratory distress, wheezes GI/Abdominal exam: Present: soft, other (Urostomy in place). Absent: distended, tenderness Neurological exam: Present: alert, oriented X3 Psychiatric exam: Present: normal affect, normal mood Skin exam: Present: warm, dry, intact <Kelly Hsieh - Last Filed: 12/19/24 13:33> Course Vital Signs 12/19/24 12/19/24 12/19/24 12:07 14:08 15:23 Temperature 97.6 F 97.8 F Pulse Rate 63 60 68 Respiratory 20 18 18 Rate Blood Pressure 135/66 116/86 128/75 O2 Sat by Pulse 99 96 98 Oximetry Medical Decision Making <HsiehKelly rivas - Last Filed: 12/19/24 13:33> - Lab Data Result diagrams: 12/19/24 13:22 12/19/24 13:22 <Emre Peace - Last Filed: 12/20/24 20:37> - Medical Decision Making Was pt. sent in by a medical professional or institution (, PEARL, CONTENT DIRECTOR, urgent care, hospital, or usp...) When possible be specific @ -No Did you speak to anyone other than the patient for history (EMS, parent, family, police, friend...)? What history was obtained from this source @ -No Did you review nursing and triage notes (agree or disagree)? Why? @ -I reviewed and agree with nursing and triage notes Were old charts reviewed (outside hosp., previous admission, EMS record, old EKG, old radiological studies, urgent care reports/EKG's, usp records)? Report findings @ -No old charts were reviewed Differential Diagnosis? @ -Differential Weakness: UTI, pyelonephritis, this is not an all-inclusive list EKG interpreted by me (3pts min.). @ -As above X-rays interpreted by me (1pt min.). @ -None done CT interpreted by me (1pt min.). @ -None done U/S interpreted by me (1pt. min.). @ -None done What testing was considered but not performed or refused? (CT, X-rays, U/S, labs)? Why? @ -None What meds were considered but not given or refused? Why? @ -None Did you discuss the management of the patient with other professionals (professionals i.e. , PEARL, CONTENT DIRECTOR, lab, RT, psych nurse, social worker delinquency prevention, drier transfer car operator, teacher, property utilization officer, pillowcase folder)? Give summary @ -Case was discussed with ED attending physician Dr. Peace. Was smoking cessation discussed for >3mins.? @ -No Was critical care preformed (if so, how long)? @ -No Were there social determinants of health that impacted care today? How? (Homelessness, low income, unemployed, alcoholism, drug addiction, transportation, low edu. Level, literacy, decrease access to med. care, correction, rehab)? @ -No Was there de-escalation of care discussed even if they declined (Discuss DNR or withdrawal of care, Hospice)? DNR status @ -No What co-morbidities impacted this encounter? (DM, HTN, Smoking, COPD, CAD, Cancer, CVA, ARF, Chemo, Hep., AIDS, mental health diagnosis, sleep apnea, morbid obesity)? @ -None Was patient admitted / discharged? Hospital course, mention meds given and route, prescriptions, significant lab abnormalities, going to OR and other pertinent info. @ -Patient will be admitted for IV antibiotics. Case was discussed with on-call sound physician who accepted admission. Infectious disease was consulted. Undiagnosed new problem with uncertain prognosis? @ -No Drug Therapy requiring intensive monitoring for toxicity (Heparin, Nitro, Insulin, Cardizem)? @ -No Were any procedures done? @ -No Diagnosis/symptom? @ -UTI Acute, or Chronic, or Acute on Chronic? @ -Acute Uncomplicated (without systemic symptoms) or Complicated (systemic symptoms)? @ -Default Side effects of treatment? @ -No Exacerbation, Progression, or Severe Exacerbation? @ -No Poses a threat to life or bodily function? How? (Chest pain, [place], [place], pneumonia, PE, COPD, DKA, ARF, appy, cholecystitis, CVA, Diverticulitis, Homicidal, Suicidal, threat to staff... and all critical care pts) @ -No (Kelly Hsieh) I personally saw the patient and performed the critical portion of the service. I discussed the patient care with the resident. I directed management, care planning and final disposition of the patient. This includes, but not limited to, review of all lab work, radiological studies, EKG's, consultations, vital signs, and nursing notes. EKG interpreted by me (3pts min.) @As above X-Rays interpreted by me (1 pt min.) @None CT interpreted by me ( 1pt min.) @None U/S interpreted by me (1 pt min.) @None Critical care time of 0 minutes excluding separately billable procedures was spent in conjunction with critical care activities provided by the Resident and Attending simultaneously. I was present during no procedures for all critical portions of the procedure and as immediately available to furnish service during the entire procedure. (Emre Peace) - Lab Data Lab Results 12/19/24 12/19/24 12/19/24 Range/Units 13:22 13:22 13:22 WBC 7.07 (4.50-10.00) 10*3/uL RBC 5.12 (4.40-5.60) 10*6/uL Hgb 15.6 (13.0-17.0) g/dL Hct 47.0 (39.6-50.0) % MCV 91.8 (80.0-97.0) fL MCH 30.5 (27.0-32.0) pg MCHC 33.2 (32.0-37.0) g/dL Plt Count 190 (140-440) 10*3/uL MPV 9.4 L (9.5-12.2) fL Immature Gran % (Auto) 0.6 % Neutrophils % 63.2 % Lymphocytes % 22.1 % Monocytes % 11.0 % Eosinophils % 2.4 % Basophils % 0.7 % Immature Gran # 0.04 (0.00-0.04) 10*3/uL Neutrophils # 4.47 (1.80-7.70) 10*3/uL Lymphocytes # 1.56 (0.90-5.00) 10*3/uL Monocytes # 0.78 (0.20-1.00) 10*3/uL Eosinophils # 0.17 (0.04-0.35) 10*3/uL Basophils # 0.05 (0.00-0.10) 10*3/uL PT 20.2 H (10.0-12.5) sec INR 2.0 H (<1.2) APTT 25.9 (22.0-30.0) sec Sodium 139 (137-145) mmol/L Potassium 3.6 (3.5-5.1) mmol/L Chloride 102 (98-107) mmol/L Carbon Dioxide 27 (22-30) mmol/L Anion Gap 10 mmol/L BUN 16 (9-20) mg/dL Creatinine 1.67 H (0.66-1.25) mg/dL Est GFR (CKD-EPI)AfAm 43 (>60 ml/min/1.73 sqM) Est GFR (CKD-EPI)NonAf 37 (>60 ml/min/1.73 sqM) Glucose 142 H (74-99) mg/dL Calcium 9.4 (8.4-10.2) mg/dL Magnesium 1.9 (1.6-2.3) mg/dL Total Bilirubin 1.2 (0.2-1.3) mg/dL AST 25 (17-59) U/L ALT 15 (4-49) U/L Alkaline Phosphatase 66 (38-126) U/L Total Protein 6.1 L (6.3-8.2) g/dL Albumin 3.5 (3.5-5.0) g/dL Urine Color Urine Appearance (Clear) Urine pH (5.0-8.0) Ur Specific [place] (1.001-1.035) Urine Protein (Negative) Urine Glucose (UA) (Negative) Urine Ketones (Negative) Urine Blood (Negative) Urine Nitrite (Negative) Urine Bilirubin (Negative) Urine Urobilinogen (<2.0) mg/dL Ur Leukocyte Esterase (Negative) Urine RBC (0-5) /hpf Urine WBC (0-5) /hpf Ur Squamous Epith Cells (0-4) /hpf Hyaline Casts (0-2) /lpf Urine Mucus (None) /hpf 12/19/24 Range/Units 13:22 WBC (4.50-10.00) 10*3/uL RBC (4.40-5.60) 10*6/uL Hgb (13.0-17.0) g/dL Hct (39.6-50.0) % MCV (80.0-97.0) fL MCH (27.0-32.0) pg MCHC (32.0-37.0) g/dL Plt Count (140-440) 10*3/uL MPV (9.5-12.2) fL Immature Gran % (Auto) % Neutrophils % % Lymphocytes % % Monocytes % % Eosinophils % % Basophils % % Immature Gran # (0.00-0.04) 10*3/uL Neutrophils # (1.80-7.70) 10*3/uL Lymphocytes # (0.90-5.00) 10*3/uL Monocytes # (0.20-1.00) 10*3/uL Eosinophils # (0.04-0.35) 10*3/uL Basophils # (0.00-0.10) 10*3/uL PT (10.0-12.5) sec INR (<1.2) APTT (22.0-30.0) sec Sodium (137-145) mmol/L Potassium (3.5-5.1) mmol/L Chloride (98-107) mmol/L Carbon Dioxide (22-30) mmol/L Anion Gap mmol/L BUN (9-20) mg/dL Creatinine (0.66-1.25) mg/dL Est GFR (CKD-EPI)AfAm (>60 ml/min/1.73 sqM) Est GFR (CKD-EPI)NonAf (>60 ml/min/1.73 sqM) Glucose (74-99) mg/dL Calcium (8.4-10.2) mg/dL Magnesium (1.6-2.3) mg/dL Total Bilirubin (0.2-1.3) mg/dL AST (17-59) U/L ALT (4-49) U/L Alkaline Phosphatase (38-126) U/L Total Protein (6.3-8.2) g/dL Albumin (3.5-5.0) g/dL Urine Color Light Yellow Urine Appearance Turbid (Clear) Urine pH 7.0 (5.0-8.0) Ur Specific [place] 1.021 (1.001-1.035) Urine Protein Trace H (Negative) Urine Glucose (UA) Negative (Negative) Urine Ketones Negative (Negative) Urine Blood Negative (Negative) Urine Nitrite Negative (Negative) Urine Bilirubin Negative (Negative) Urine Urobilinogen <2.0 (<2.0) mg/dL Ur Leukocyte Esterase Small H (Negative) Urine RBC 5 (0-5) /hpf Urine WBC 36 H (0-5) /hpf Ur Squamous Epith Cells 1 (0-4) /hpf Hyaline Casts 1 (0-2) /lpf Urine Mucus Rare H (None) /hpf Disposition Decision Date: 12/19/24 Decision Time: 13:00 <Kelly Hsieh - Last Filed: 12/19/24 13:33> Is patient prescribed a controlled substance at d/c from ED?: No Time of Disposition: 14:54 <Emre Peace - Last Filed: 12/20/24 20:37> Clinical Impression: UTI (urinary tract infection) Disposition: HOME SELF-CARE Condition: Good Prescriptions: Cefdinir [Omnicef] 300 mg PO Q12HR 7 Days #14 capsule Referrals: Ronak Ledesma DO [Primary Care Provider] - 1-2 days
[2024-12-19 13:49] LABS: Basophils # (A) 0.05 10*3/uL (0.00-0.10); Basophils % (A) 0.7 %; Eosinophils # (A) 0.17 10*3/uL (0.04-0.35); Eosinophils % (A) 2.4 %; HGB 15.6 g/dL (13.0-17.0); Lymphocytes # (A) 1.56 10*3/uL (0.90-5.00); Lymphocytes % (A) 22.1 %; MCH 30.5 pg (27.0-32.0); MCHC 33.2 g/dL (32.0-37.0); MCV 91.8 fL (80.0-97.0); Mean Platelet Volume 9.4 fL (9.5-12.2); Monocytes # (A) 0.78 10*3/uL (0.20-1.00); Neutrophils # (A) 4.47 10*3/uL (1.80-7.70); Neutrophils % (A) 63.2 %; Platelet Count 190 10*3/uL (140-440); RBC 5.12 10*6/uL (4.40-5.60); RDW 15.2 % (11.5-14.5); WBC 7.07 10*3/uL (4.50-10.00)
[2024-12-19 13:53] LABS: Partial Thromboplastin Time 25.9 sec (22.0-30.0); Prothrombin Time 20.2 sec (10.0-12.5)
[2024-12-19 13:56] LABS: ALT 15 U/L (4-49); AST 25 U/L (17-59); African American GFR (CKD) 43 (>60 ml/min/1.73 sqM); Albumin 3.5 g/dL (3.5-5.0); Alkaline Phosphatase 66 U/L (38-126); Anion Gap 10 mmol/L; Blood Urea Nitrogen 16 mg/dL (9-20); Calcium 9.4 mg/dL (8.4-10.2); Carbon Dioxide 27 mmol/L (22-30); Chloride 102 mmol/L (98-107); Glucose 142 mg/dL (74-99); Magnesium 1.9 mg/dL (1.6-2.3); Non-African American GFR(CKD) 37 (>60 ml/min/1.73 sqM); Potassium 3.6 mmol/L (3.5-5.1); Sodium 139 mmol/L (137-145); Total Bilirubin 1.2 mg/dL (0.2-1.3); Total Protein 6.1 g/dL (6.3-8.2)
[2024-12-19 14:09] VITALS: RESP 18
[2024-12-19 14:09] LABS: Appearance,Urine Turbid (Clear); Bilirubin,Urine Negative (Negative); Blood,Urine Negative (Negative); Color,Urine Light Yellow; Glucose,Urine (UA) Negative (Negative); Hyaline Casts,Urine 1 /lpf (0-2); Ketones,Urine Negative (Negative); Leukocyte Esterase,Urine Small (Negative); Mucus,Urine Rare /hpf; Nitrite,Urine Negative (Negative); Protein,Urine Trace (Negative); RBC,Urine 5 /hpf (0-5); Specific Gravity,Urine 1.021 (1.001-1.035); Squamous Epithelial Cell,Urine 1 /hpf (0-4); Urobilinogen,Urine <2.0 mg/dL (<2.0); WBC,Urine 36 /hpf (0-5)
[2024-12-19 15:24] VITALS: BP 128/75; PULSE 68; TEMP 97.8
== END 2024-12-19 15:27 | disposition home or self-care (01) ==
LOC: EC 12:01
DX: N39.0 Urinary tract infection, site not specified (principal); C19 Malignant neoplasm of rectosigmoid junction; I48.91 Unspecified atrial fibrillation; Z87.891 Personal history of nicotine dependence; Z88.1 Allergy status to other antibiotic agents
CPT/HCPCS: 36415; 80053; 83735; 85025; 85610; 85730; 81001; 87040; 87086; 99283; 96365; J0696